=== PATIENT | male | born 1950 | race Caucasian/White ===

== ENCOUNTER 2017-02-02 20:17 | Inpatient (IN) | payer MEDICARE, OTHER ==
[~2017-02-02] VITALS: Ht 188 cm; Wt 126.6 kg
[2017-02-02 20:26] VITALS: BP 132/58
[2017-02-02] MEDS ORDERED: Vancomycin 1 GM in NS 275 ML IV ONE (20:30)
[2017-02-02] MEDS ORDERED: Meropenem 1 GM in NS 110 ML IVPB ONE (20:30)
[2017-02-02] MEDS ORDERED: NS IVLG ONE (20:30)
[2017-02-02 21:41] LABS: MEAN CORPUSCULAR HEMOGLOBIN 34.8 PG (27.0-31.0); MEAN CORPUSCULAR HGB CONC 35.5 G/DL (32.0-36.0); MEAN CORPUSCULAR VOLUME 98 FL (80-99); MEAN PLATELET VOLUME 7.1 FL (6.5-10.1); PLATELET COUNT 106 K/UL (150-450); RED BLOOD COUNT 4.05 M/UL (4.70-6.10); RED CELL DISTRIBUTION WIDTH 13.7 % (11.6-14.8); WHITE BLOOD COUNT 20.3 K/UL (4.8-10.8)
[2017-02-02 22:03] LABS: ALBUMIN/GLOBULIN RATIO 1.1 (1.0-2.7); CALCIUM 9.4 mg/dL (8.6-10.2); CREATININE 1.5 mg/dL (0.7-1.2); GLOMERULAR FILTRATION RATE 46.5 mL/min (>60); POTASSIUM 4.4 mEQ/L (3.4-4.9); TROPONIN I < 0.30 ng/mL (<=0.30)
[2017-02-02] MEDS ORDERED: Meropenem 1gm vial ONE (22:10)
[2017-02-02] MEDS ORDERED: Vancomycin 1gm inj IVPB ONE ×2 (22:11→23:25)
[2017-02-02 22:13] LABS: CKMB 5.2 ng/mL (< 6.7)
[2017-02-02] MEDS: Acetaminophen 500mg (ES) tab ORAL ONE ×3 (22:25→23:05)
[2017-02-02 22:34] LABS: BAND NEUTROPHILS % (MANUAL) 4 % (0-8); BASOPHILS % (MANUAL) 1 % (0-2); EOSINOPHILS % (MANUAL) 0 % (0-3); LYMPHOCYTES % (MANUAL) 7 % (20-45); NEUTROPHILS % (MANUAL) 83 % (45-75); PLATELET ESTIMATE DECREASED; PLATELET MORPHOLOGY NORMAL; TOTAL CELLS COUNTED 100
--- NOTE | 2017-02-02 22:42 | Emergency Room Report ---
History of Present Illness General Chief Complaint: General Complaint Source: Patient, Medical Record, EMS Present Illness HPI This patient presents from a skilled facility. He has a history of COPD, hypertension, GERD and schizophrenia. He presents with concerns over infection. He was tachypneic with an elevated temperature. EMS also reported that his oxygen saturation was low. He has no specific complaints at this time. Allergies: Coded Allergies: No Known Allergies (Unverified , 02/02/17) Patient History Past Medical History: see triage record, old chart reviewed, HTN, CAD, COPD, GERD, psych hx, renal disease Social History: Denies: smoking, alcohol use, drug use Reviewed Nursing Documentation: PMH: Agreed, PSxH: Agreed Nursing Documentation-PMH Hx Hypertension: Yes Hx COPD: Yes Review of Systems All Other Systems: negative except mentioned in HPI Physical Exam Vital Signs Date Time Temp Pulse Resp B/P (MAP) Pulse Ox O2 Delivery O2 Flow Rate FiO2 02/02/17 20:07 99.7 111 24 147/76 98 Room Air Sp02 EP Interpretation: reviewed, normal General Appearance: no apparent distress, alert, GCS 15, non-toxic Head: normocephalic, atraumatic Eyes: bilateral eye normal inspection, bilateral eye PERRL ENT: hearing grossly normal, normal pharynx, no angioedema, normal voice Neck: full range of motion, supple/symm/no masses Respiratory: chest non-tender, lungs clear, normal breath sounds, no respiratory distress, no retraction, no accessory muscle use, speaking full sentences Cardiovascular #1: no edema, tachycardia Gastrointestinal: normal bowel sounds, non tender, soft, non-distended, no guarding, no rebound Rectal: deferred Musculoskeletal: normal range of motion, non-tender Neurologic: alert, responsive, motor strength/tone normal, speech normal Psychiatric: mood/affect normal, no suicidal/homicidal ideation Skin: warm/dry, well hydrated, other - See RN skin exam Medical Decision Making Diagnostic Impression: Primary Impression: Sepsis Additional Impression: Pneumonia ER Course This patient has sepsis. He presented with tachycardia and a white blood cell count 20. The chest x-ray is limited but appears to have a left lower lobe opacity. He was given broad-spectrum antibiotics IV fluids. He'll be admitted for further evaluation and treatment. Blood pressure remained stable. The patient maintained his oxygen saturations in the high 90s. He is admitted to telemetry. Laboratory Tests Test 02/02/17 21:30 White Blood Count 20.3 K/UL (4.8-10.8) H Red Blood Count 4.05 M/UL (4.70-6.10) L Hemoglobin 14.1 G/DL (14.2-18.0) L Hematocrit 39.7 % (42.0-52.0) L Mean Corpuscular Volume 98 FL (80-99) Mean Corpuscular Hemoglobin 34.8 PG (27.0-31.0) H Mean Corpuscular Hemoglobin Concent 35.5 G/DL (32.0-36.0) Red Cell Distribution Width 13.7 % (11.6-14.8) Platelet Count 106 K/UL (150-450) L Mean Platelet Volume 7.1 FL (6.5-10.1) Neutrophils (%) (Auto) % (45.0-75.0) Lymphocytes (%) (Auto) % (20.0-45.0) Monocytes (%) (Auto) % (1.0-10.0) Eosinophils (%) (Auto) % (0.0-3.0) Basophils (%) (Auto) % (0.0-2.0) Differential Total Cells Counted 100 Neutrophils % (Manual) 83 % (45-75) H Lymphocytes % (Manual) 7 % (20-45) L Monocytes % (Manual) 5 % (1-10) Eosinophils % (Manual) 0 % (0-3) Basophils % (Manual) 1 % (0-2) Band Neutrophils 4 % (0-8) Platelet Estimate Decreased L Platelet Morphology Normal Red Blood Cell Morphology Normal Sodium Level 135 mEQ/L (135-145) Potassium Level 4.4 mEQ/L (3.4-4.9) Chloride Level 98 mEQ/L (98-107) Carbon Dioxide Level 23 mEQ/L (20-30) Anion Gap 14 (5-15) Blood Urea Nitrogen 29 mg/dL (7-23) H Creatinine 1.5 mg/dL (0.7-1.2) H Estimate Glomerular Filtration Rate 46.5 mL/min (>60) Glucose Level 125 mg/dL (74-106) H Lactic Acid Level 1.70 mmol/L (0.66-2.22) Calcium Level 9.4 mg/dL (8.6-10.2) Total Bilirubin 0.6 mg/dL (0.0-1.2) Aspartate Amino Transferase (AST) 39 U/L (5-40) Alanine Aminotransferase (ALT) 12 U/L (3-41) Alkaline Phosphatase 52 U/L (40-129) Total Creatine Kinase 755 U/L (38-174) H Creatine Kinase MB 5.2 ng/mL (< 6.7) Creatine Kinase MB Relative Index 0.6 Troponin I < 0.30 ng/mL (<=0.30) Total Protein 7.0 g/dL (6.6-8.7) Albumin 3.7 g/dL (3.5-5.2) Globulin 3.3 g/dL Albumin/Globulin Ratio 1.1 (1.0-2.7) EKG Diagnostic Results Rate: tachycardiac Rhythm: other ST Segments: no acute changes Other Impression S.tachycardia Rhythm Strip Diag. Results EP Interpretation: yes Rate: 100's Rhythm: other Other Impression S.tachycardia Chest X-Ray Diagnostic Results Chest X-Ray Diagnostic Results : Chest X-Ray Ordered: Yes # of Views/Limited/Complete: 1 View Indication: Shortness of Breath EP Interpretation: Yes Interpretation: other Impression: Other - LLL opacity Last Vital Signs Date Time Temp Pulse Resp B/P (MAP) Pulse Ox O2 Delivery O2 Flow Rate FiO2 02/02/17 20:26 99.7 102 24 132/58 98 Room Air Disposition: ADMITTED INPATIENT Condition: Serious Referrals: Connor Oliva MD (PCP) HIREN RINCON D.O. Feb 02, 2017 22:42
[2017-02-02 22:51] VITALS: BP 107/70
[2017-02-02] MEDS ORDERED: Acetaminophen 650 MG SUPP RECTAL ONE ×2 (23:18→23:30)
[2017-02-02 23:37] LABS: APPEARANCE,URINE CLEAR; KETONES,URINE 1+ (NEGATIVE); NITRITE,URINE NEGATIVE (NEGATIVE); PH,URINE 6 (4.5-8.0); PROTEIN,URINE 2+ (NEGATIVE); UROBILINOGEN,URINE 1 MG/DL (0.0-1.0)
[2017-02-02 23:43] LABS: LEUKOCYTE ESTERASE ,URINE NEGATIVE (NEGATIVE)
[2017-02-02 23:48] LABS: RBC,URINE 0-2 /HPF (0 - 0); WBC,URINE 0 /HPF (0 - 0)
[2017-02-02] MEDS ORDERED: CRANBERRY500 M4 PO (23:50)
[2017-02-02] MEDS ORDERED: ASPIR 8181 MG ORAL (23:50)
[2017-02-02] MEDS ORDERED: ZINC SULFATE220 M1 ORAL (23:50)
[2017-02-02] MEDS ORDERED: VITAMIN C500 M1 ORAL (23:50)
[2017-02-02] MEDS ORDERED: FERROUS SULFAT325 MG ORAL (23:50)
[2017-02-02] MEDS ORDERED: AMLODIPINE BESYL5 MG ORAL (23:50)
[2017-02-02] MEDS ORDERED: FLOMAX0.4 MG ORAL (23:50)
[2017-02-03] VITALS (7 sets, daily range): BP systolic 120–135; BP diastolic 50–73
[2017-02-03] MEDS ORDERED: Acetaminophen 650 MG SUPP RECTAL PRN ×2 (00:45→18:30)
[2017-02-03 05:20] LABS: MEAN CORPUSCULAR HEMOGLOBIN 34.5 PG (27.0-31.0); MEAN CORPUSCULAR HGB CONC 34.6 G/DL (32.0-36.0); MEAN CORPUSCULAR VOLUME 100 FL (80-99); MEAN PLATELET VOLUME 6.8 FL (6.5-10.1); PLATELET COUNT 105 K/UL (150-450); RED CELL DISTRIBUTION WIDTH 13.8 % (11.6-14.8)
[2017-02-03 05:42] LABS: ALANINE AMINOTRANSFERASE 13 U/L (3-41); ALBUMIN/GLOBULIN RATIO 0.7 (1.0-2.7); ANION GAP 12 (5-15); ASPARTATE AMINO TRANSFERASE 57 U/L (5-40); CALCIUM 9.1 mg/dL (8.6-10.2); CARBON DIOXIDE 22 mEQ/L (20-30); CHLORIDE 105 mEQ/L (98-107); CREATININE 1.2 mg/dL (0.7-1.2); GLOMERULAR FILTRATION RATE > 60 mL/min (>60); HEMOLYSIS 5; POTASSIUM 4.1 mEQ/L (3.4-4.9); SODIUM 139 mEQ/L (135-145); TOTAL PROTEIN 6.8 g/dL (6.6-8.7)
[2017-02-03] MEDS ORDERED: Promethazine/Codeine 5ml UD ORAL PRN ×2 (06:45→18:45)
[2017-02-03] MEDS ORDERED: Zinc Sulfate 220mg cap ORAL SCH (09:00)
[2017-02-03] MEDS ORDERED: Ascorbic Acid 500mg tab ORAL SCH (09:00)
[2017-02-03] MEDS ORDERED: Tamsulosin 0.4mg cap ORAL SCH (09:00)
[2017-02-03] MEDS ORDERED: Aspirin Baby 81mg ORAL SCH (09:00)
[2017-02-03 09:06] LABS: ANISOCYTOSIS 1+; BAND NEUTROPHILS % (MANUAL) 4 % (0-8); BASOPHILS % (MANUAL) 0 % (0-2); EOSINOPHILS % (MANUAL) 0 % (0-3); LYMPHOCYTES % (MANUAL) 6 % (20-45); MACROCYTES 1+; METAMYELOCYTES % 7 % (0-0); MYELOCYTES % 1 % (0-0); NEUTROPHILS % (MANUAL) 69 % (45-75); PLATELET ESTIMATE DECREASED; PLATELET MORPHOLOGY NORMAL; TOTAL CELLS COUNTED 100
[2017-02-03 09:07] LABS: BURR CELLS 1+; OVALOCYTES 1+; TEAR DROP CELLS 1+
--- NOTE | 2017-02-03 11:14 | Consultation ---
History of Present Illness General Date patient seen: Feb 03, 2017 Chief Complaint: General Complaint Present Illness HPI 66 year old male with hx of psychosis, CAD, COPD presented from a skilled facility with CC of tachypneic with an elevated temperature. EMS also reported that his oxygen saturation was low. He has no specific complaints at this time. He was diagnosed to have RLL pneumonia and admitted to [facility] for further evaluation. Allergies: Coded Allergies: No Known Allergies (Unverified , 02/02/17) Medication History Scheduled Amlodipine Besylate* (Amlodipine Besylate*), 5 MG ORAL DAILY, (Reported) Ascorbic Acid* (Vitamin C*), 500 MG ORAL DAILY, (Reported) Aspirin* (Aspir 81*), 81 MG ORAL DAILY, (Reported) Ferrous Sulfate* (Ferrous Sulfate*), 325 MG ORAL DAILY, (Reported) Tamsulosin HCl (Flomax), 0.4 MG ORAL DAILY, (Reported) Zinc Sulfate (Zinc Sulfate*), 220 MG ORAL DAILY, (Reported) Miscellaneous Medications Cranberry Extract (Cranberry), 450 MG PO, (Reported) Patient History Healthcare decision maker Resuscitation status Full Code Advanced Directive on File No Past Medical/Surgical History Past Medical/Surgical History: (1) CAD (coronary artery disease) (2) COPD (chronic obstructive pulmonary disease) (3) Psychosis Review of Systems Constitutional: Reports: no symptoms Eye: Reports: no symptoms ENT: Reports: no symptoms Cardiovascular: Reports: no symptoms Physical Exam General Appearance: WD/WN Lines, tubes and drains: peripheral, central line HEENT: normocephalic, atraumatic Neck: non-tender, normal alignment Respiratory/Chest: lungs clear, normal breath sounds Breasts: no masses Cardiovascular/Chest: normal rate, regularly irregular Abdomen: normal bowel sounds, soft Genitourinary/Rectal: normal genital exam Last 24 Hour Vital Signs Date Time Temp Pulse Resp B/P (MAP) Pulse Ox O2 Delivery O2 Flow Rate FiO2 02/03/17 09:15 95 120/73 02/03/17 08:00 95 02/03/17 08:00 99.3 92 21 120/73 93 Room Air 02/03/17 04:00 109 02/03/17 04:00 96.9 105 20 133/71 95 Nasal Cannula 3.0 02/03/17 01:15 97.2 115 24 135/72 97 Nasal Cannula 3.0 02/03/17 00:27 99.4 105 25 127/70 95 Nasal Cannula 2.0 02/03/17 00:13 99.4 02/03/17 00:10 99.4 105 25 127/70 95 Nasal Cannula 2.0 02/02/17 22:51 101.3 91 24 107/70 94 Nasal Cannula 2.0 02/02/17 20:26 99.7 102 24 132/58 98 Room Air 02/02/17 20:07 99.7 111 24 147/76 98 Room Air Intake and Output 02/03/17 02/04/17 19:00 07:00 Intake Total 240 ml Balance 240 ml Intake Oral 240 ml Laboratory Tests Test 02/02/17 21:30 02/02/17 23:22 02/03/17 03:50 White Blood Count 20.3 K/UL (4.8-10.8) H 22.0 K/UL (4.8-10.8) H Red Blood Count 4.05 M/UL (4.70-6.10) L 3.90 M/UL (4.70-6.10) L Hemoglobin 14.1 G/DL (14.2-18.0) L 13.4 G/DL (14.2-18.0) L Hematocrit 39.7 % (42.0-52.0) L 38.8 % (42.0-52.0) L Mean Corpuscular Volume 98 FL (80-99) 100 FL (80-99) H Mean Corpuscular Hemoglobin 34.8 PG (27.0-31.0) H 34.5 PG (27.0-31.0) H Mean Corpuscular Hemoglobin Concent 35.5 G/DL (32.0-36.0) 34.6 G/DL (32.0-36.0) Red Cell Distribution Width 13.7 % (11.6-14.8) 13.8 % (11.6-14.8) Platelet Count 106 K/UL (150-450) L 105 K/UL (150-450) L Mean Platelet Volume 7.1 FL (6.5-10.1) 6.8 FL (6.5-10.1) Neutrophils (%) (Auto) % (45.0-75.0) % (45.0-75.0) Lymphocytes (%) (Auto) % (20.0-45.0) % (20.0-45.0) Monocytes (%) (Auto) % (1.0-10.0) % (1.0-10.0) Eosinophils (%) (Auto) % (0.0-3.0) % (0.0-3.0) Basophils (%) (Auto) % (0.0-2.0) % (0.0-2.0) Differential Total Cells Counted 100 100 Neutrophils % (Manual) 83 % (45-75) H 69 % (45-75) Lymphocytes % (Manual) 7 % (20-45) L 6 % (20-45) L Monocytes % (Manual) 5 % (1-10) 13 % (1-10) H Eosinophils % (Manual) 0 % (0-3) 0 % (0-3) Basophils % (Manual) 1 % (0-2) 0 % (0-2) Band Neutrophils 4 % (0-8) 4 % (0-8) Platelet Estimate Decreased L Decreased L Platelet Morphology Normal Normal Red Blood Cell Morphology Normal Sodium Level 135 mEQ/L (135-145) 139 mEQ/L (135-145) Potassium Level 4.4 mEQ/L (3.4-4.9) 4.1 mEQ/L (3.4-4.9) Chloride Level 98 mEQ/L (98-107) 105 mEQ/L (98-107) Carbon Dioxide Level 23 mEQ/L (20-30) 22 mEQ/L (20-30) Anion Gap 14 (5-15) 12 (5-15) Blood Urea Nitrogen 29 mg/dL (7-23) H 25 mg/dL (7-23) H Creatinine 1.5 mg/dL (0.7-1.2) H 1.2 mg/dL (0.7-1.2) Estimat Glomerular Filtration Rate 46.5 mL/min (>60) > 60 mL/min (>60) Glucose Level 125 mg/dL (74-106) H 91 mg/dL (74-106) Lactic Acid Level 1.70 mmol/L (0.66-2.22) Calcium Level 9.4 mg/dL (8.6-10.2) 9.1 mg/dL (8.6-10.2) Total Bilirubin 0.6 mg/dL (0.0-1.2) 0.6 mg/dL (0.0-1.2) Aspartate Amino Transf (AST/SGOT) 39 U/L (5-40) 57 U/L (5-40) H Alanine Aminotransferase (ALT/SGPT) 12 U/L (3-41) 13 U/L (3-41) Alkaline Phosphatase 52 U/L (40-129) 60 U/L (40-129) Total Creatine Kinase 755 U/L (38-174) H Creatine Kinase MB 5.2 ng/mL (< 6.7) Creatine Kinase MB Relative Index 0.6 Troponin I < 0.30 ng/mL (<=0.30) Total Protein 7.0 g/dL (6.6-8.7) 6.8 g/dL (6.6-8.7) Albumin 3.7 g/dL (3.5-5.2) 2.9 g/dL (3.5-5.2) L Globulin 3.3 g/dL 3.9 g/dL Albumin/Globulin Ratio 1.1 (1.0-2.7) 0.7 (1.0-2.7) L Urine Color Yellow Urine Appearance Clear Urine pH 6 (4.5-8.0) Urine Specific [place] 1.010 (1.005-1.035) Urine Protein 2+ (NEGATIVE) H Urine Glucose (UA) Negative (NEGATIVE) Urine Ketones 1+ (NEGATIVE) H Urine Occult Blood Negative (NEGATIVE) Urine Nitrite Negative (NEGATIVE) Urine Bilirubin Negative (NEGATIVE) Urine Urobilinogen 1 MG/DL (0.0-1.0) H Urine Leukocyte Esterase Negative (NEGATIVE) Urine RBC 0-2 /HPF (0 - 0) H Urine WBC 0 /HPF (0 - 0) Urine Squamous Epithelial Cells None /LPF (NONE/OCC) Urine Bacteria None /HPF (NONE) Metamyelocytes % 7 % (0-0) H Myelocytes % 1 % (0-0) H Anisocytosis 1+ Macrocytosis 1+ Tear Drop Cells 1+ Ovalocytes 1+ Jackson Cells 1+ Height (Feet): 6 Height (Inches): 2.00 Weight (Pounds): 279 Medications Current Medications Medications (Trade) Dose Ordered Sig/Ruma Route PRN Reason Start Time Stop Time Status Last Admin Dose Admin Acetaminophen (Tylenol) 650 mg Q4H PRN RECTAL Mild Pain (Pain Scale 1-3) 02/03/17 00:45 03/05/17 00:44 Amlodipine Besylate (Norvasc) 5 mg DAILY ORAL 02/03/17 09:00 03/05/17 08:59 02/03/17 09:15 Ascorbic Acid (Vitamin C) 500 mg DAILY ORAL 02/03/17 09:00 03/05/17 08:59 02/03/17 09:15 Aspirin (ASA) 81 mg DAILY ORAL 02/03/17 09:00 03/05/17 08:59 02/03/17 09:15 Ferrous Sulfate (Feosol) 325 mg DAILY ORAL 02/03/17 09:00 03/05/17 08:59 02/03/17 09:15 Promethazine HCl/ Codeine (Phenergan with Codeine) 5 ml Q4H PRN ORAL For Cough 02/03/17 06:45 03/05/17 06:44 Tamsulosin HCl (Flomax) 0.4 mg DAILY ORAL 02/03/17 09:00 03/05/17 08:59 02/03/17 09:15 Zinc Sulfate (Zinc Sulfate) 220 mg DAILY ORAL 02/03/17 09:00 03/05/17 08:59 02/03/17 09:15 Assessment/Plan Problem List: (1) Pneumonia ICD Codes: J18.9 - Pneumonia, unspecified organism SNOMED: 570090017 (2) Sepsis ICD Codes: A41.9 - Sepsis, unspecified organism SNOMED: 42103808 (3) COPD (chronic obstructive pulmonary disease) ICD Codes: J44.9 - Chronic obstructive pulmonary disease, unspecified SNOMED: 13082797 (4) CAD (coronary artery disease) ICD Codes: I25.10 - Atherosclerotic heart disease of [place] coronary artery without angina pectoris SNOMED: 25008986 (5) Psychosis ICD Codes: F29 - Unspecified psychosis not due to a substance or known physiological condition SNOMED: 93753962 Assessment/Plan respiratory treatment IV abx chest pt check sputum cxr in a few days med/surg dvt prophylaxis. CELINA COLLIER Feb 03, 2017 11:14
[2017-02-03 11:30] LABS: OTHERS PATHOLOGIST COMMENT
--- NOTE | 2017-02-03 11:49 | Diagnostic Imaging Report ---
Indication: Dyspnea Comparison: None A single view chest radiograph was obtained. Findings: Infiltrate may be present at the left lung base. Heart is enlarged. Lung volumes are low bilaterally. Bones are unremarkable. Impression: Suspect pneumonia at the left lung base. Atelectasis is also a possibility. Please correlate clinically.
[2017-02-03] MEDS ORDERED: Piperacillin/Tazobactam 3.375 GM in D5W 110 ML IVPB SCH (12:00)
--- NOTE | 2017-02-03 13:52 | Infectious Diseases Prog Note ---
Assessment/Plan Problems: (1) HCAP (healthcare-associated pneumonia) Assessment & Plan: will start vancomycin and continue zosyn empirically, send sputum culture (2) Sepsis Assessment & Plan: will send blood culture and continue wide spectrum antibiotics pending culture (3) COPD (chronic obstructive pulmonary disease) Assessment & Plan: continue inhalers, and oxygen (4) CAD (coronary artery disease) Assessment & Plan: continue cardiac meds , monitor in tele Subjective Allergies: Coded Allergies: No Known Allergies (Unverified , 02/02/17) Objective Vital Signs Last 24 Hour Vital Signs Date Time Temp Pulse Resp B/P (MAP) Pulse Ox O2 Delivery O2 Flow Rate FiO2 02/03/17 11:45 98.2 86 21 122/72 93 Nasal Cannula 2.0 02/03/17 11:30 86 20 Room Air 21 02/03/17 09:15 95 120/73 02/03/17 08:00 95 02/03/17 08:00 99.3 92 21 120/73 93 Room Air 02/03/17 04:00 109 02/03/17 04:00 96.9 105 20 133/71 95 Nasal Cannula 3.0 02/03/17 01:15 97.2 115 24 135/72 97 Nasal Cannula 3.0 02/03/17 00:27 99.4 105 25 127/70 95 Nasal Cannula 2.0 02/03/17 00:13 99.4 02/03/17 00:10 99.4 105 25 127/70 95 Nasal Cannula 2.0 02/02/17 22:51 101.3 91 24 107/70 94 Nasal Cannula 2.0 02/02/17 20:26 99.7 102 24 132/58 98 Room Air 02/02/17 20:07 99.7 111 24 147/76 98 Room Air Height (Feet): 6 Height (Inches): 2.00 Weight (Pounds): 279 Laboratory Tests Test 02/02/17 21:30 02/02/17 23:22 02/03/17 03:50 White Blood Count 20.3 K/UL (4.8-10.8) H 22.0 K/UL (4.8-10.8) H Red Blood Count 4.05 M/UL (4.70-6.10) L 3.90 M/UL (4.70-6.10) L Hemoglobin 14.1 G/DL (14.2-18.0) L 13.4 G/DL (14.2-18.0) L Hematocrit 39.7 % (42.0-52.0) L 38.8 % (42.0-52.0) L Mean Corpuscular Volume 98 FL (80-99) 100 FL (80-99) H Mean Corpuscular Hemoglobin 34.8 PG (27.0-31.0) H 34.5 PG (27.0-31.0) H Mean Corpuscular Hemoglobin Concent 35.5 G/DL (32.0-36.0) 34.6 G/DL (32.0-36.0) Red Cell Distribution Width 13.7 % (11.6-14.8) 13.8 % (11.6-14.8) Platelet Count 106 K/UL (150-450) L 105 K/UL (150-450) L Mean Platelet Volume 7.1 FL (6.5-10.1) 6.8 FL (6.5-10.1) Neutrophils (%) (Auto) % (45.0-75.0) % (45.0-75.0) Lymphocytes (%) (Auto) % (20.0-45.0) % (20.0-45.0) Monocytes (%) (Auto) % (1.0-10.0) % (1.0-10.0) Eosinophils (%) (Auto) % (0.0-3.0) % (0.0-3.0) Basophils (%) (Auto) % (0.0-2.0) % (0.0-2.0) Differential Total Cells Counted 100 100 Neutrophils % (Manual) 83 % (45-75) H 69 % (45-75) Lymphocytes % (Manual) 7 % (20-45) L 6 % (20-45) L Monocytes % (Manual) 5 % (1-10) 13 % (1-10) H Eosinophils % (Manual) 0 % (0-3) 0 % (0-3) Basophils % (Manual) 1 % (0-2) 0 % (0-2) Band Neutrophils 4 % (0-8) 4 % (0-8) Platelet Estimate Decreased L Decreased L Platelet Morphology Normal Normal Red Blood Cell Morphology Normal Sodium Level 135 mEQ/L (135-145) 139 mEQ/L (135-145) Potassium Level 4.4 mEQ/L (3.4-4.9) 4.1 mEQ/L (3.4-4.9) Chloride Level 98 mEQ/L (98-107) 105 mEQ/L (98-107) Carbon Dioxide Level 23 mEQ/L (20-30) 22 mEQ/L (20-30) Anion Gap 14 (5-15) 12 (5-15) Blood Urea Nitrogen 29 mg/dL (7-23) H 25 mg/dL (7-23) H Creatinine 1.5 mg/dL (0.7-1.2) H 1.2 mg/dL (0.7-1.2) Estimat Glomerular Filtration Rate 46.5 mL/min (>60) > 60 mL/min (>60) Glucose Level 125 mg/dL (74-106) H 91 mg/dL (74-106) Lactic Acid Level 1.70 mmol/L (0.66-2.22) Calcium Level 9.4 mg/dL (8.6-10.2) 9.1 mg/dL (8.6-10.2) Total Bilirubin 0.6 mg/dL (0.0-1.2) 0.6 mg/dL (0.0-1.2) Aspartate Amino Transf (AST/SGOT) 39 U/L (5-40) 57 U/L (5-40) H Alanine Aminotransferase (ALT/SGPT) 12 U/L (3-41) 13 U/L (3-41) Alkaline Phosphatase 52 U/L (40-129) 60 U/L (40-129) Total Creatine Kinase 755 U/L (38-174) H Creatine Kinase MB 5.2 ng/mL (< 6.7) Creatine Kinase MB Relative Index 0.6 Troponin I < 0.30 ng/mL (<=0.30) Total Protein 7.0 g/dL (6.6-8.7) 6.8 g/dL (6.6-8.7) Albumin 3.7 g/dL (3.5-5.2) 2.9 g/dL (3.5-5.2) L Globulin 3.3 g/dL 3.9 g/dL Albumin/Globulin Ratio 1.1 (1.0-2.7) 0.7 (1.0-2.7) L Urine Color Yellow Urine Appearance Clear Urine pH 6 (4.5-8.0) Urine Specific [place] 1.010 (1.005-1.035) Urine Protein 2+ (NEGATIVE) H Urine Glucose (UA) Negative (NEGATIVE) Urine Ketones 1+ (NEGATIVE) H Urine Occult Blood Negative (NEGATIVE) Urine Nitrite Negative (NEGATIVE) Urine Bilirubin Negative (NEGATIVE) Urine Urobilinogen 1 MG/DL (0.0-1.0) H Urine Leukocyte Esterase Negative (NEGATIVE) Urine RBC 0-2 /HPF (0 - 0) H Urine WBC 0 /HPF (0 - 0) Urine Squamous Epithelial Cells None /LPF (NONE/OCC) Urine Bacteria None /HPF (NONE) Metamyelocytes % 7 % (0-0) H Myelocytes % 1 % (0-0) H Other Cell Type Pathologist comment Anisocytosis 1+ Macrocytosis 1+ Tear Drop Cells 1+ Ovalocytes 1+ Sarah Cells 1+ Current Medications Medications (Trade) Dose Ordered Sig/Ruma Route PRN Reason Start Time Stop Time Status Last Admin Dose Admin Acetaminophen (Tylenol) 650 mg Q4H PRN RECTAL Mild Pain (Pain Scale 1-3) 02/03/17 00:45 03/05/17 00:44 Amlodipine Besylate (Norvasc) 5 mg DAILY ORAL 02/03/17 09:00 03/05/17 08:59 02/03/17 09:15 Ascorbic Acid (Vitamin C) 500 mg DAILY ORAL 02/03/17 09:00 03/05/17 08:59 02/03/17 09:15 Aspirin (ASA) 81 mg DAILY ORAL 02/03/17 09:00 03/05/17 08:59 02/03/17 09:15 Ferrous Sulfate (Feosol) 325 mg DAILY ORAL 02/03/17 09:00 03/05/17 08:59 02/03/17 09:15 Piperacillin Sod/ Tazobactam Sod 3.375 gm/Dextrose 110 ml @ 27.5 mls/hr EVERY 8 HOURS IVPB 02/03/17 12:00 02/08/17 11:59 Promethazine HCl/ Codeine (Phenergan with Codeine) 5 ml Q4H PRN ORAL For Cough 02/03/17 06:45 03/05/17 06:44 Tamsulosin HCl (Flomax) 0.4 mg DAILY ORAL 02/03/17 09:00 03/05/17 08:59 02/03/17 09:15 Zinc Sulfate (Zinc Sulfate) 220 mg DAILY ORAL 02/03/17 09:00 03/05/17 08:59 02/03/17 09:15 Perez Anderson M.D. Feb 03, 2017 13:52
[2017-02-03] MEDS ORDERED: Vancomycin 1500mg IVPB SCH (14:30)
--- NOTE | 2017-02-03 17:55 | Cardiology Report ---
APPROVED REPORT EKG Measurement Heart [id number] HI [id number] Sinus tachycardia Otherwise normal ECG
[2017-02-03] MEDS ORDERED: Tubing IV Secondary IV ONE (19:43)
[2017-02-03] MEDS ORDERED: NS 275ml ONE (19:43)
[2017-02-03] MEDS: Piperacillin/Tazobactam 3.375 GM in D5W 110 ML IVPB SCH (22:20)
[2017-02-04] VITALS: BP 123/56
--- NOTE | 2017-02-04 00:02 | Consultation ---
DATE OF CONSULTATION: 02/03/2017 INFECTIOUS DISEASES CONSULTATION CONSULTING PHYSICIAN: Perez Anderson M.D. REQUESTING PHYSICIAN: Connor Oliva M.D. Reason For Consultation: Sepsis, pneumonia, and recommendation for antibiotics treatment History Of Present Illness: The patient is a 66-year-old male with past medical history of hypertension, COPD, coronary artery disease, psych disorder, and renal disease, was sent to [facility] emergency room from [facility] for concern of infection. The patient was tachypneic with fever. His oxygen saturation was found to be low via paramedics, so he was brought into the hospital for evaluation. The patient was found to have temperature of 99.7 in the emergency room. White count was around 20,000 concerning for sepsis, so he was started on IV antibiotics and I was consulted by the primary provider for antibiotics treatment and further management since his chest x-ray showed left lower lobe opacity concerning for pneumonia. Past Medical History: Significant for hypertension, coronary artery disease, COPD, GERD, psych disorder, and renal disease. Medications: The patient was started on vancomycin and Zosyn by the admitting physician. For the rest of his medications, please refer to MAR. ALLERGIES: No known drug allergy. Social History: He lives at the [facility]. No recent drugs, tobacco, or alcohol. FAMILY HISTORY: Unable to obtain at this point. PHYSICAL EXAMINATION: Vital signs: Temperature 99, pulse 80, respirations 20, blood pressure 130/67, and saturation 93% on nasal cannula 2 liters. General: A middle-aged male, obese, lying in bed, awake, alert, not in distress. HEENT: Normocephalic and atraumatic. Pupils are reactive to light. Dry oral mucosa. NECK: Supple. No lymphadenopathy. CARDIOVASCULAR: Tachycardic. S1 and S2 are normal. No murmur. Lungs: He had crackles and diminished breathing sounds at the bases mainly the left lower lobe. Normal breathing efforts. Abdomen: Soft, nontender, and nondistended. Obese. No organomegaly. EXTREMITIES: Trace edema. No cyanosis. SKIN: No rash. Laboratory data: Laboratory showed white count of 22,000 hemoglobin of 15.4, and platelet count of 105, BUN of 25, and creatinine of 1.2. Urinalysis showed negative leukocyte esterase, WBCs 0, and no bacteria. IMAGING: Chest x-ray showed left lower lobe opacity. ASSESSMENT AND RECOMMENDATION: 1. Healthcare-acquired pneumonia with left lower lobe infiltrate. We will start vancomycin and continue Zosyn empiric treatment. Send sputum culture and blood culture to rule out sepsis. Monitor chest x-ray. 2. Sepsis. We will send blood culture. Continue Zosyn and vancomycin. Pending culture results. 3. Chronic obstructive pulmonary disease, possible exacerbation. Continue inhalers, antibiotics, and oxygen. 4. Coronary artery disease. Continue cardiac medications. Monitor in telemetry. Perez Anderson M.D. DR: Lopez JOB#: [id number] CC:
[2017-02-04] MEDS ORDERED: Vancomycin 1.5gm/D5W 250ml 250 ML IVPB SCH (03:00)
[2017-02-04 04:00] VITALS: BP 112/69
[2017-02-04] MEDS: Piperacillin/Tazobactam 3.375 GM in D5W 110 ML IVPB SCH ×3 (06:10→21:37)
[2017-02-04 08:57] VITALS: BP 127/57
[2017-02-04] MEDS ORDERED: Ascorbic Acid 500mg tab ORAL SCH (09:00)
[2017-02-04] MEDS ORDERED: Aspirin Baby 81mg ORAL SCH (09:00)
[2017-02-04] MEDS ORDERED: Zinc Sulfate 220mg cap ORAL SCH (09:00)
[2017-02-04] MEDS ORDERED: Tamsulosin 0.4mg cap ORAL SCH (09:00)
[2017-02-04 12:11] VITALS: BP 114/58
--- NOTE | 2017-02-04 12:40 | History and Physical Report ---
DATE OF ADMISSION: 02/02/2017 REASON FOR ADMISSION: Sepsis and pneumonia. History Of Present Illness: The patient is a poor historian. The patient had fever and diaphoresis at the skilled nursing and was transferred and admitted and was found to have sepsis and pneumonia. The patient is a poor historian and cannot rely upon his history. The patient is a psychiatric patient. The patient does have a history of schizophrenia, iron-deficiency anemia, BPH, OBS, history of CAD, and history of COPD. PAST SURGICAL HISTORY: None. Medications: , vitamin C, aspirin, cranberry juice, ferrous sulfate, and . ALLERGIES: No known allergies. FAMILY HISTORY: Noncontributory. Social History: He has history of smoking. No history of drug or alcohol use. He lives in a skilled nursing. Review Of Systems: HEENT: Denies headaches. Respiratory: Reports shortness of breath. Denies cough. Cardiovascular: Denies chest pain. Gastrointestinal: Denies nausea, vomiting, or diarrhea. Extremities: Denies pain. Central Nervous System: Denies change in vision or speech pattern, however, he is a poor historian. PHYSICAL EXAMINATION: Vital Signs: Temperature is 98.2 degrees, pulse 86, and blood pressure is 122/70. HEENT: PERRLA. NECK: Supple. CHEST: Clear to auscultation. CARDIOVASCULAR: Regular rate and rhythm. No murmur or extra sounds. Gastrointestinal: Soft, nontender, and nondistended. No organomegaly. EXTREMITIES: No edema. NEUROLOGIC: Reflexes are equal on both sides. Laboratory Data: Laboratory ruggiero, WBC of 20.3, hemoglobin 14.1, and platelets of 106,000. Sodium 135, potassium 4.4, BUN of 29, creatinine 1.5, and glucose of 125. ASSESSMENT: 1. Sepsis. 2. Pneumonia on the x-ray. 3. Leukocytosis, most likely due to sepsis. Plan: I have asked Dr. Anderson and Dr. Roman to see the patient for the above-mentioned diagnoses and treatment of sepsis and pneumonia. I have asked Dr. Montesinos and Dr. Roman to see the patient for dehydration, pneumonia, and sepsis. Connor Oliva M.D. DR: [id number] JOB#: [id number] CC:
--- NOTE | 2017-02-04 12:40 | Consultation ---
DATE OF CONSULTATION: 02/03/2017 HEMATOLOGY/ONCOLOGY CONSULTATION REQUESTING PHYSICIAN: Connor Oliva M.D. Reason For Consultation: Evaluation of thrombocytopenia and leukocytosis. IDENTIFICATION DATA: Dear Dr. Connor Oliva, The patient is a pleasant 66-year-old male with past medical history significant of psychosis . At this time, presents from a retirement facility with complaints of tachypnea as well as being febrile. Initial oxygen saturation was low. Diagnosis of right lower lobe pneumonia. Hematology service was consulted given leukocytosis as well as thrombocytopenia for evaluation and workup. PAST MEDICAL HISTORY: CAD, COPD, and psychosis. Medications: Amlodipine, ascorbic acid, aspirin, ferrous sulfate, and . ALLERGIES: No known drug allergies. Review Of Systems: Constitutional: No fever, chills, or night sweats. Skin: No rashes, lumps, or itching. HEENT: No headache, hearing or vision changes. Breasts: No lumps, pain, or discharge. Pulmonary: No cough, sputum, or shortness of breath. Gastrointestinal: No nausea, vomiting, or diarrhea. Genitourinary: No dysuria, frequency, or urgency. Musculoskeletal: No joint swelling, muscle pain, or trauma. PHYSICAL EXAMINATION: Vital Signs: Temperature 98 degrees Fahrenheit, pulse of 83, respiratory rate 12, blood pressure 120/73, and pulse oximetry 93% on room air. GENERAL: The patient is in no acute distress. PULMONARY: Decreased breath sounds. CARDIOVASCULAR: Regular rate. No S3 or S4. ABDOMEN: Soft, nontender, and nondistended. EXTREMITIES: There is 1+ edema. Laboratory Data: WBC 22,000, hemoglobin 13.4, hematocrit 39, platelet count of ,000, neutrophils 69%, lymphocytes 6%, and monocytes 30%. IMAGING: Chest x-ray shows pneumonia in the left lung base. ASSESSMENT AND PLAN: 1. Thrombocytopenia, likely secondary to underlying infection and sepsis. Continue to closely monitor. 2. Macrocytosis, likely related to medication versus other causes. Evaluate further with B12 and folate levels. 3. Leukocytosis, likely secondary to reactive process infection. 4. Coronary artery disease. Continue to closely monitor. 5. Chronic obstructive pulmonary disease, presented from retirement facility. 6. Elevated temperature. 7. Sepsis. I appreciate the consultation. Tr Bhardwaj M.D. DR: JOSI JOB#: [id number] CC:
--- NOTE | 2017-02-04 13:15 | Pulmonology Progress Note ---
Assessment/Plan Problems: (1) Pneumonia (2) Sepsis (3) COPD (chronic obstructive pulmonary disease) (4) CAD (coronary artery disease) (5) Psychosis Assessment/Plan wbc still high check cultures adjust abx hematology consult appreciated. dvt prophylaxis med/surg psych consult. Subjective ROS Limited/Unobtainable: No Constitutional: Reports: no symptoms HEENT: Repors: no symptoms Respiratory: Reports: no symptoms Cardiovascular: Reports: no symptoms Allergies: Coded Allergies: No Known Allergies (Unverified , 02/02/17) Objective Last 24 Hour Vital Signs Date Time Temp Pulse Resp B/P (MAP) Pulse Ox O2 Delivery O2 Flow Rate FiO2 02/04/17 12:11 97.2 71 20 114/58 95 Nasal Cannula 2.0 02/04/17 08:57 97.5 87 20 127/57 95 Nasal Cannula 2.0 02/04/17 08:34 69 127/69 02/04/17 08:00 72 02/04/17 04:00 97.7 88 21 112/69 95 Room Air 02/04/17 04:00 74 02/04/17 00:00 96 02/04/17 00:00 97.9 84 20 123/56 91 Nasal Cannula 2.0 21 02/03/17 20:00 107 02/03/17 20:00 99.0 101 20 129/50 91 Nasal Cannula 2.0 21 02/03/17 16:00 81 02/03/17 15:33 99.0 80 20 130/67 93 Nasal Cannula 2.0 Intake and Output 02/04/17 02/05/17 19:00 07:00 Intake Total 120 ml Balance 120 ml Intake Oral 120 ml General Appearance: WD/WN HEENT: normocephalic, atraumatic Respiratory/Chest: chest wall non-tender, lungs clear Cardiovascular: normal peripheral pulses, normal rate Abdomen: normal bowel sounds, soft, non tender Microbiology Date/Time Source Procedure Growth Status 02/02/17 21:30 Blood Blood Culture - Preliminary NO GROWTH AFTER 24 HOURS Resulted 02/02/17 21:15 Blood Blood Culture - Preliminary NO GROWTH AFTER 24 HOURS Resulted 02/03/17 11:30 Sputum Gram Stain - Final Resulted 02/03/17 11:30 Sputum Sputum Culture - Preliminary NO GROWTH AFTER 24 HOURS Resulted 02/02/17 23:51 Rectum VRE Culture - Final Complete Laboratory Tests 02/03/17 21:15: Hepatitis A IgM Antibody [Pending], Hepatitis B Surface Antigen [Pending], Hepatitis B Core IgM Antibody [Pending], Hepatitis C Antibody [Pending], HIV (1& 2) Antibody Rapid Negative Current Medications Medications (Trade) Dose Ordered Sig/Ruma Route PRN Reason Start Time Stop Time Status Last Admin Dose Admin Acetaminophen (Tylenol) 650 mg Q4H PRN RECTAL Mild Pain (Pain Scale 1-3) 02/03/17 18:30 03/05/17 18:29 Amlodipine Besylate (Norvasc) 5 mg DAILY ORAL 02/04/17 09:00 03/05/17 08:59 02/04/17 08:34 Ascorbic Acid (Vitamin C) 500 mg DAILY ORAL 02/04/17 09:00 03/05/17 08:59 02/04/17 08:35 Aspirin (ASA) 81 mg DAILY ORAL 02/04/17 09:00 03/05/17 08:59 02/04/17 08:34 Ferrous Sulfate (Feosol) 325 mg DAILY ORAL 02/04/17 09:00 03/05/17 08:59 02/04/17 08:34 Piperacillin Sod/ Tazobactam Sod 3.375 gm/Dextrose 110 ml @ 27.5 mls/hr EVERY 8 HOURS IVPB 02/03/17 22:00 02/08/17 21:59 02/04/17 13:01 Promethazine HCl/ Codeine (Phenergan with Codeine) 5 ml Q4H PRN ORAL For Cough 02/03/17 18:45 03/05/17 06:44 Tamsulosin HCl (Flomax) 0.4 mg DAILY ORAL 02/04/17 09:00 03/05/17 08:59 02/04/17 08:34 Vancomycin HCl (Vanco rx to dose) 1 ea DAILYPRN PRN MISC Per rx protocol 02/04/17 09:00 03/06/17 08:59 Vancomycin HCl/ Dextrose 250 ml @ 125 mls/hr 0300,1500 IVPB 02/04/17 03:00 02/08/17 14:29 02/04/17 02:44 Zinc Sulfate (Zinc Sulfate) 220 mg DAILY ORAL 02/04/17 09:00 03/05/17 08:59 02/04/17 08:35 CELINA COLLIER 13, 2017 13:15
--- NOTE | 2017-02-04 15:30 | General Progress Note ---
Assessment/Plan Assessment/Plan ASSESSMENT AND PLAN: 1. Thrombocytopenia, likely secondary to underlying infection and sepsis. Continue to closely monitor. --> hiv and hep panel negative ---> if the plt count less than 10k, transfuse immediately. If less than 20k and febrile, transfuse. If less than 50k and bleeding, transfuse. 2. Macrocytosis, likely related to medication versus other causes. Evaluate further with B12 and folate levels. 3. Leukocytosis, likely secondary to reactive process infection ---> on iv abx. 4. Coronary artery disease. Continue to closely monitor. 5. Chronic obstructive pulmonary disease, presented from [facility] facility. 6. Elevated temperature. 7. Sepsis Subjective Constitutional: Reports: no symptoms HEENT: Reports: no symptoms Cardiovascular: Reports: no symptoms Respiratory: Reports: no symptoms Gastrointestinal/Abdominal: Reports: no symptoms Genitourinary: Reports: no symptoms Neurologic/Psychiatric: Reports: no symptoms Endocrine: Reports: no symptoms Hematologic/Lymphatic: Reports: anemia Allergies: Coded Allergies: No Known Allergies (Unverified , 02/02/17) Subjective no events overnight, no bleeding, afebrile Objective Last 24 Hour Vital Signs Date Time Temp Pulse Resp B/P (MAP) Pulse Ox O2 Delivery O2 Flow Rate FiO2 02/04/17 12:11 97.2 71 20 114/58 95 Nasal Cannula 2.0 02/04/17 08:57 97.5 87 20 127/57 95 Nasal Cannula 2.0 02/04/17 08:34 69 127/69 02/04/17 08:00 72 02/04/17 04:00 97.7 88 21 112/69 95 Room Air 02/04/17 04:00 74 02/04/17 00:00 96 02/04/17 00:00 97.9 84 20 123/56 91 Nasal Cannula 2.0 21 02/03/17 20:00 107 02/03/17 20:00 99.0 101 20 129/50 91 Nasal Cannula 2.0 21 02/03/17 16:00 81 02/03/17 15:33 99.0 80 20 130/67 93 Nasal Cannula 2.0 Intake and Output 02/04/17 02/05/17 19:00 07:00 Intake Total 120 ml Balance 120 ml Intake Oral 120 ml Laboratory Tests 02/03/17 21:15: Hepatitis A IgM Antibody [Pending], Hepatitis B Surface Antigen [Pending], Hepatitis B Core IgM Antibody [Pending], Hepatitis C Antibody [Pending], HIV (1& 2) Antibody Rapid Negative 02/04/17 14:30: Random Vancomycin Level 13.5 Height (Feet): 6 Height (Inches): 2.00 Weight (Pounds): 279 General Appearance: no apparent distress EENT: normal ENT inspection Neck: normal alignment Cardiovascular: normal peripheral pulses Respiratory/Chest: chest wall non-tender Edema: trace edema Neurologic: tablet coater II-XII grossly normal, normal mood/affect Skin: normal pigmentation, warm/dry Tr Bhardwaj Feb 04, 2017 15:30
[2017-02-04 16:00] VITALS: BP 104/70
--- NOTE | 2017-02-04 16:33 | Diagnostic Imaging Report ---
Indication: SOB Technique: Scott-scale and duplex images of the upper abdomen were obtained Comparison: None Findings: There is trace pleural fluid on the left Gallbladder is unremarkable, without stones, wall thickening, nor pericholecystic fluid. Sonographic Canseco's sign is negative. Common bile duct measures 4 mm in diameter. No intrahepatic biliary ductal dilatation. Liver demonstrates normal echogenicity, no focal abnormality. Portal vein and hepatic veins are patent. Pancreas is unremarkable. The spleen is enlarged, measuring 14.9 cm long axis dimension Left kidney measures 11.6 cm in length. Right kidney measures 11.5 cm length. Both kidneys demonstrate normal echogenicity. There is no hydronephrosis. The right kidney demonstrates a mixed echogenicity lesion in the upper pole which measures 2.9 cm in diameter. Non-aneurysmal abdominal aorta . Impression: 2.9 cm right upper pole complex renal lesion. Mass or abscess not excludable. Recommend renal protocol contrast CT for further evaluation Negative for gallstones or dilated ducts Trace left pleural effusion Findings discussed by phone with Dr. Meehan at the time of interpretation
--- NOTE | 2017-02-04 16:53 | General Progress Note ---
Assessment/Plan Status Narrative renal mass Assessment/Plan recomended CT with iv contrust Subjective Constitutional: Reports: no symptoms Gastrointestinal/Abdominal: Reports: abdominal pain Genitourinary: Reports: no symptoms Allergies: Coded Allergies: No Known Allergies (Unverified , 02/02/17) Objective Last 24 Hour Vital Signs Date Time Temp Pulse Resp B/P (MAP) Pulse Ox O2 Delivery O2 Flow Rate FiO2 02/04/17 16:00 97.2 78 20 104/70 94 Nasal Cannula 2.0 02/04/17 12:11 97.2 71 20 114/58 95 Nasal Cannula 2.0 02/04/17 08:57 97.5 87 20 127/57 95 Nasal Cannula 2.0 02/04/17 08:34 69 127/69 02/04/17 08:00 72 02/04/17 04:00 97.7 88 21 112/69 95 Room Air 02/04/17 04:00 74 02/04/17 00:00 96 02/04/17 00:00 97.9 84 20 123/56 91 Nasal Cannula 2.0 21 02/03/17 20:00 107 02/03/17 20:00 99.0 101 20 129/50 91 Nasal Cannula 2.0 21 Intake and Output 02/04/17 02/05/17 19:00 07:00 Intake Total 120 ml Balance 120 ml Intake Oral 120 ml # Voids 2 Laboratory Tests 02/03/17 21:15: Hepatitis A IgM Antibody [Pending], Hepatitis B Surface Antigen [Pending], Hepatitis B Core IgM Antibody [Pending], Hepatitis C Antibody [Pending], HIV (1& 2) Antibody Rapid Negative 02/04/17 14:30: Random Vancomycin Level 13.5 Height (Feet): 6 Height (Inches): 2.00 Weight (Pounds): 279 Abdomen: normal bowel sounds Pelvis: normal external exam Sachin Mills MD Feb 04, 2017 16:53
[2017-02-04] MEDS ORDERED: Acetaminophen 650 MG SUPP RECTAL PRN (17:00)
--- NOTE | 2017-02-04 17:26 | Infectious Diseases Prog Note ---
Assessment/Plan Problems: (1) HCAP (healthcare-associated pneumonia) Assessment & Plan: on vancomycin and zosyn empirically, await sputum culture (2) Sepsis Assessment & Plan: rule out renal abscess , await blood culture and continue wide spectrum antibiotics pending images results (3) COPD (chronic obstructive pulmonary disease) Assessment & Plan: continue inhalers, and oxygen (4) CAD (coronary artery disease) Assessment & Plan: continue cardiac meds , monitor in tele (5) Renal mass of unknown nature Assessment & Plan: rule out abscess VS tumor, will order MRI of the abdomen , recommend urology consult Subjective ROS Limited/Unobtainable: Yes Allergies: Coded Allergies: No Known Allergies (Unverified , 02/02/17) Objective Vital Signs Last 24 Hour Vital Signs Date Time Temp Pulse Resp B/P (MAP) Pulse Ox O2 Delivery O2 Flow Rate FiO2 02/04/17 16:00 97.2 78 20 104/70 94 Nasal Cannula 2.0 02/04/17 12:11 97.2 71 20 114/58 95 Nasal Cannula 2.0 02/04/17 08:57 97.5 87 20 127/57 95 Nasal Cannula 2.0 02/04/17 08:34 69 127/69 02/04/17 08:00 72 02/04/17 04:00 97.7 88 21 112/69 95 Room Air 02/04/17 04:00 74 02/04/17 00:00 96 02/04/17 00:00 97.9 84 20 123/56 91 Nasal Cannula 2.0 21 02/03/17 20:00 107 02/03/17 20:00 99.0 101 20 129/50 91 Nasal Cannula 2.0 21 Height (Feet): 6 Height (Inches): 2.00 Weight (Pounds): 279 General Appearance: WD/WN, no acute distress HEENT: normocephalic, atraumatic, anicteric, mucous membranes moist Respiratory/Chest: chest wall non-tender, lungs clear, normal breath sounds, no respiratory distress, no accessory muscle use Cardiovascular: normal peripheral pulses, normal rate, regular rhythm, no gallop/murmur, no JVD Abdomen: normal bowel sounds, soft, non tender, no organomegaly, non distended , no mass, no scars Extremities: no cyanosis, no clubbing Skin: no rash, no lesions, no ulcers Microbiology Date/Time Source Procedure Growth Status 02/02/17 21:30 Blood Blood Culture - Preliminary NO GROWTH AFTER 24 HOURS Resulted 02/02/17 21:15 Blood Blood Culture - Preliminary NO GROWTH AFTER 24 HOURS Resulted 02/03/17 11:30 Sputum Gram Stain - Final Resulted 02/03/17 11:30 Sputum Sputum Culture - Preliminary NO GROWTH AFTER 24 HOURS Resulted 02/02/17 23:51 Rectum VRE Culture - Final Complete Laboratory Tests Test 02/03/17 21:15 02/04/17 14:30 Hepatitis A IgM Antibody Pending Hepatitis B Surface Antigen Pending Hepatitis B Core IgM Antibody Pending Hepatitis C Antibody Pending HIV (1&2) Antibody Rapid Negative (NEGATIVE) Random Vancomycin Level 13.5 ug/mL Current Medications Medications (Trade) Dose Ordered Sig/Ruma Route PRN Reason Start Time Stop Time Status Last Admin Dose Admin Acetaminophen (Tylenol) 650 mg Q4H PRN RECTAL Mild Pain (Pain Scale 1-3) 02/04/17 17:00 03/05/17 16:59 Amlodipine Besylate (Norvasc) 5 mg DAILY ORAL 02/05/17 09:00 03/05/17 08:59 Ascorbic Acid (Vitamin C) 500 mg DAILY ORAL 02/05/17 09:00 03/05/17 08:59 Aspirin (ASA) 81 mg DAILY ORAL 02/05/17 09:00 03/05/17 08:59 Ferrous Sulfate (Feosol) 325 mg DAILY ORAL 02/05/17 09:00 03/05/17 08:59 Piperacillin Sod/ Tazobactam Sod 3.375 gm/Dextrose 110 ml @ 27.5 mls/hr EVERY 8 HOURS IVPB 02/04/17 22:00 02/09/17 21:59 Promethazine HCl/ Codeine (Phenergan with Codeine) 5 ml Q4H PRN ORAL For Cough 02/04/17 17:00 03/05/17 16:59 Tamsulosin HCl (Flomax) 0.4 mg DAILY ORAL 02/05/17 09:00 03/05/17 08:59 Vancomycin HCl (Vanco rx to dose) 1 ea DAILYPRN PRN MISC Per rx protocol 02/05/17 09:00 03/06/17 08:59 Vancomycin HCl/ Dextrose 250 ml @ 125 mls/hr 0300,1500 IVPB 02/05/17 03:00 02/08/17 14:29 Zinc Sulfate (Zinc Sulfate) 220 mg DAILY ORAL 02/05/17 09:00 03/05/17 08:59 Perez Anderson M.D. Feb 04, 2017 17:26
[2017-02-04 20:00] VITALS: BP 127/67
--- NOTE | 2017-02-04 20:58 | General Progress Note ---
Assessment/Plan Problem List: (1) Pneumonia ICD Codes: J18.9 - Pneumonia, unspecified organism SNOMED: 104036146 (2) Psychosis ICD Codes: F29 - Unspecified psychosis not due to a substance or known physiological condition SNOMED: 97186445 (3) Sepsis ICD Codes: A41.9 - Sepsis, unspecified organism SNOMED: 88268049 (4) Renal mass of unknown nature ICD Codes: N28.89 - Other specified disorders of kidney and ureter SNOMED: 044242283 Status: progressing Assessment/Plan renal mass consulted heme/onc and urology for renal mass afebrile pna and sepsis leukocytosis improving r/o renal mass vs abscess Subjective ROS Limited/Unobtainable: Yes Allergies: Coded Allergies: No Known Allergies (Unverified , 02/02/17) Objective Last 24 Hour Vital Signs Date Time Temp Pulse Resp B/P (MAP) Pulse Ox O2 Delivery O2 Flow Rate FiO2 02/04/17 20:00 97.7 68 18 127/67 97 Nasal Cannula 2.0 02/04/17 16:00 97.2 78 20 104/70 94 Nasal Cannula 2.0 02/04/17 12:11 97.2 71 20 114/58 95 Nasal Cannula 2.0 02/04/17 08:57 97.5 87 20 127/57 95 Nasal Cannula 2.0 02/04/17 08:34 69 127/69 02/04/17 08:00 72 02/04/17 04:00 97.7 88 21 112/69 95 Room Air 02/04/17 04:00 74 02/04/17 00:00 96 02/04/17 00:00 97.9 84 20 123/56 91 Nasal Cannula 2.0 21 Intake and Output 02/04/17 02/05/17 19:00 07:00 Intake Total 240 ml Balance 240 ml Intake Oral 240 ml # Voids 3 Laboratory Tests 02/03/17 21:15: Hepatitis A IgM Antibody [Pending], Hepatitis B Surface Antigen [Pending], Hepatitis B Core IgM Antibody [Pending], Hepatitis C Antibody [Pending], HIV (1& 2) Antibody Rapid Negative 02/04/17 14:30: Random Vancomycin Level 13.5 Height (Feet): 6 Height (Inches): 2.00 Weight (Pounds): 279 General Appearance: confused Respiratory/Chest: lungs clear Abdomen: soft Connor Oliva MD Feb 04, 2017 20:58
[2017-02-05] MEDS: Promethazine/Codeine 5ml UD ORAL PRN ×2 (02:10→09:42)
[2017-02-05] MEDS ORDERED: Vancomycin 1.5gm/D5W 250ml 250 ML IVPB SCH (03:00)
[2017-02-05 04:00] VITALS: BP 123/56
[2017-02-05] MEDS: Piperacillin/Tazobactam 3.375 GM in D5W 110 ML IVPB SCH ×2 (04:03→14:29)
[2017-02-05 08:00] VITALS: BP 91/50
[2017-02-05 09:26] LABS: BASOPHILS % (AUTO) 1.1 % (0.0-2.0); EOSINOPHILS % (AUTO) 2.6 % (0.0-3.0); LYMPHOCYTES % (AUTO) 24.8 % (20.0-45.0); MEAN CORPUSCULAR HGB CONC 32.7 G/DL (32.0-36.0); MEAN CORPUSCULAR VOLUME 98 FL (80-99); MEAN PLATELET VOLUME 6.5 FL (6.5-10.1); NEUTROPHILS % (AUTO) 61.6 % (45.0-75.0); PLATELET COUNT 137 K/UL (150-450); RED BLOOD COUNT 3.87 M/UL (4.70-6.10); RED CELL DISTRIBUTION WIDTH 12.9 % (11.6-14.8); WHITE BLOOD COUNT 10.6 K/UL (4.8-10.8)
[2017-02-05] MEDS: Ascorbic Acid 500mg tab ORAL SCH (09:42)
[2017-02-05] MEDS: Aspirin Baby 81mg ORAL SCH (09:42)
[2017-02-05] MEDS: Zinc Sulfate 220mg cap ORAL SCH (09:42)
[2017-02-05] MEDS: Tamsulosin 0.4mg cap ORAL SCH (09:42)
[2017-02-05 09:47] LABS: ALANINE AMINOTRANSFERASE 18 U/L (3-41); ALBUMIN/GLOBULIN RATIO 0.6 (1.0-2.7); ANION GAP 9 (5-15); ASPARTATE AMINO TRANSFERASE 30 U/L (5-40); CALCIUM 8.6 mg/dL (8.6-10.2); CARBON DIOXIDE 28 mEQ/L (20-30); CHLORIDE 100 mEQ/L (98-107); CRP QUANT 11.2 mg/dL (< 0.5); GLOMERULAR FILTRATION RATE > 60 mL/min (>60); HEMOLYSIS 2; MAGNESIUM 1.6 mg/dL (1.7-2.5); PHOSPHORUS 4.1 mg/dL (2.5-4.8); POTASSIUM 4.2 mEQ/L (3.4-4.9); SODIUM 137 mEQ/L (135-145); TOTAL PROTEIN 6.3 g/dL (6.6-8.7)
--- NOTE | 2017-02-05 10:47 | Consultation ---
Consult Note Consult Note asked to eval for renal mass Patient admitted with sepsis and dehydration Kidney WILLIE: Impression: 2.9 cm right upper pole complex renal lesion. Mass or abscess not excludable. Recommend renal protocol contrast CT for further evaluation Negative for gallstones or dilated ducts Trace left pleural effusion since admit: Leukocytosis resolved- Renal parameters normalized- Patinet has proteinuria examined- data reviewed Assessment/Plan Dehydration resolved- Renal mass in WILLIE Pneumonia COPD CAD Sepsis Plan: CT Urogram DC when OK with ID Per orders KWADWO VILLASEÑOR Feb 05, 2017 10:47
[2017-02-05 11:17] LABS: CHOLESTEROL 118 mg/dL (< 200); CHOLESTEROL/HDL RATIO 3.3 (3.3-4.4); HEMOLYSIS 4; LDL CHOLESTEROL (CALC.) 66 mg/dL (60-99)
[2017-02-05 11:18] LABS: HEMOGLOBIN A1C 4.5 % (< 6.0)
[2017-02-05] MEDS: D5NS 1,000 ML IV SCH ×2 (11:25→23:47)
[2017-02-05 11:39] VITALS: BP 98/55
--- NOTE | 2017-02-05 15:11 | Diagnostic Imaging Report ---
Indication: Right renal mass Technique: Continuous dynamic, helical transaxial imaging of the abdomen and pelvis was obtained from the lung bases to the pubic symphysis during intravenous contrast administration. Noncontrast imaging also performed. Post contrast imaging] or of venous and delayed phases of enhancement. Coronal 2-D reformats were also obtained. Study obtained in a Siemens sensation [address] Total Dose length Product (DLP): [address] Dose Index Volume (CTDIvol): 0.15, 19.75, 12.13, 19.71, 19.75, 19.95, 266.9 mGy Comparison: Ultrasound 02/04/17 Findings: There is a complex cystic, multiseptated relatively nonenhancing mass measuring 2.5 CM within the right kidney. There is some perinephric stranding surrounding both kidneys fairly symmetrically. There is no hydronephrosis. There are no renal stones identified. Renal parenchymal enhancement is normal. There is no evidence of bacterial nephritis. There is no evidence of uroepithelial thickening. The urinary bladder is unremarkable. There is dense left basilar consolidation consistent with pneumonia. No significant pleural effusion seen. Coronary calcifications are present. Liver and spleen are unremarkable. Gallbladder, pancreas, adrenal glands appear unremarkable. Appendix is normal. There is no free fluid or free air. There is narrowing of intervertebral discs and accompanying endplate osteophyte formation. Hypertrophied facet joints also demonstrated.. Impression: 2.5 cm complex cystic mass within the right kidney. Differential considerations include cystic renal cell carcinoma and infection. Clinical correlation and followup examinations are recommended. Left basilar consolidation most likely representing. Atherosclerotic disease. Spondylosis The CT scanner at [facility] is accredited by the [employer] and the scans are performed using protocols designed to limit radiation exposure to as low as reasonably achievable to attain images of sufficient resolution adequate for diagnostic evaluation.
--- NOTE | 2017-02-05 15:48 | General Progress Note ---
Assessment/Plan Assessment/Plan ASSESSMENT AND PLAN: 1. Thrombocytopenia, likely secondary to underlying infection and sepsis. Continue to closely monitor. --> hiv and hep panel negative --> improving ---> if the plt count less than 10k, transfuse immediately. If less than 20k and febrile, transfuse. If less than 50k and bleeding, transfuse. 2. 2.5 cm cystic mass R kidney --> urology consultation appreciated 3. Macrocytosis, likely related to medication versus other causes. Evaluate further with B12 and folate levels. 4. Leukocytosis, likely secondary to reactive process infection ---> on iv abx. --> resolved 5. Coronary artery disease. Continue to closely monitor. 6. Chronic obstructive pulmonary disease, presented from nursing home facility. Subjective Constitutional: Reports: no symptoms HEENT: Reports: no symptoms Cardiovascular: Reports: no symptoms Respiratory: Reports: no symptoms Gastrointestinal/Abdominal: Reports: no symptoms Genitourinary: Reports: no symptoms Neurologic/Psychiatric: Reports: no symptoms Endocrine: Reports: no symptoms Hematologic/Lymphatic: Reports: anemia Allergies: Coded Allergies: No Known Allergies (Unverified , 02/02/17) Subjective afebrile, NAD Objective Last 24 Hour Vital Signs Date Time Temp Pulse Resp B/P (MAP) Pulse Ox O2 Delivery O2 Flow Rate FiO2 02/05/17 11:39 97.2 75 19 98/55 97 Nasal Cannula 2.0 02/05/17 09:00 76 91/50 02/05/17 08:00 97.5 76 18 91/50 94 Nasal Cannula 2.0 02/05/17 04:00 97.8 70 19 123/56 93 Room Air 02/04/17 20:00 97.7 68 18 127/67 97 Nasal Cannula 2.0 02/04/17 16:00 97.2 78 20 104/70 94 Nasal Cannula 2.0 Laboratory Tests 02/05/17 09:00: White Blood Count 10.6, Red Blood Count 3.87L, Hemoglobin 12.4L, Hematocrit 37.9L, Mean Corpuscular Volume 98, Mean Corpuscular Hemoglobin 32.0H, Mean Corpuscular Hemoglobin Concent 32.7, Red Cell Distribution Width 12.9, Platelet Count 137L, Mean Platelet Volume 6.5, Neutrophils (%) (Auto) 61.6, Lymphocytes ( %) (Auto) 24.8, Monocytes (%) (Auto) 10.0, Eosinophils (%) (Auto) 2.6, Basophils (%) (Auto) 1.1, Sodium Level 137, Potassium Level 4.2, Chloride Level 100, Carbon Dioxide Level 28, Anion Gap 9, Blood Urea Nitrogen 16, Creatinine 1.0, Estimat Glomerular Filtration Rate > 60, Glucose Level 91, Hemoglobin A1c 4.5, Uric Acid 4.0, Calcium Level 8.6, Phosphorus Level 4.1, Magnesium Level 1.6L, Total Bilirubin 0.6, Aspartate Amino Transf (AST/SGOT) 30, Alanine Aminotransferase (ALT/SGPT) 18, Alkaline Phosphatase 51, Total Creatine Kinase 141, C-Reactive Protein, Quantitative 11.2H, Pro-B-Type Natriuretic Peptide 2656H, Total Protein 6.3L, Albumin 2.5L, Globulin 3.8, Albumin/Globulin Ratio 0.6L, Triglycerides Level 79, Cholesterol Level 118, LDL Cholesterol 66, HDL Cholesterol 36, Cholesterol/HDL Ratio 3.3, Thyroid Stimulating Hormone (TSH) 4.830H Height (Feet): 6 Height (Inches): 2.00 Weight (Pounds): 279 General Appearance: no apparent distress EENT: PERRL/EOMI Neck: normal alignment Abdomen: no organomegaly, no mass Edema: mild edema Neurologic: promotional demonstrator II-XII grossly normal Skin: normal pigmentation Tr Bhardwaj Feb 05, 2017 15:48
[2017-02-05 16:09] VITALS: BP 132/60
--- NOTE | 2017-02-05 16:28 | Infectious Diseases Prog Note ---
Assessment/Plan Problems: (1) HCAP (healthcare-associated pneumonia) Assessment & Plan: on vancomycin and zosyn empirically, await sputum culture (2) Sepsis Assessment & Plan: rule out renal abscess , await blood culture and continue wide spectrum antibiotics pending images results (3) COPD (chronic obstructive pulmonary disease) Assessment & Plan: continue inhalers, and oxygen (4) CAD (coronary artery disease) Assessment & Plan: continue cardiac meds , monitor in tele (5) Renal mass of unknown nature Assessment & Plan: unclear whether abscess VS tumor, had CT of the abdomen , recommend urology consult, and repeated image in 2 weeks after being on antibiotics to confirm diagnosis Subjective ROS Limited/Unobtainable: Yes Allergies: Coded Allergies: No Known Allergies (Unverified , 02/02/17) Objective Vital Signs Last 24 Hour Vital Signs Date Time Temp Pulse Resp B/P (MAP) Pulse Ox O2 Delivery O2 Flow Rate FiO2 02/05/17 16:09 97.7 78 19 132/60 96 Nasal Cannula 3.0 02/05/17 11:39 97.2 75 19 98/55 97 Nasal Cannula 2.0 02/05/17 09:00 76 91/50 02/05/17 08:00 97.5 76 18 91/50 94 Nasal Cannula 2.0 02/05/17 04:00 97.8 70 19 123/56 93 Room Air 02/04/17 20:00 97.7 68 18 127/67 97 Nasal Cannula 2.0 Height (Feet): 6 Height (Inches): 2.00 Weight (Pounds): 279 General Appearance: WD/WN, no acute distress HEENT: normocephalic, atraumatic, anicteric Respiratory/Chest: chest wall non-tender, no respiratory distress, no accessory muscle use, decreased breath sounds, crackles/rales Cardiovascular: normal peripheral pulses, normal rate, regular rhythm, no gallop/murmur Abdomen: normal bowel sounds, soft, non tender, no organomegaly, non distended , no mass, no scars Extremities: no cyanosis, no clubbing Skin: no rash, no lesions, no ulcers Neurologic/Psychiatric: alert Microbiology Date/Time Source Procedure Growth Status 02/02/17 21:30 Blood Blood Culture - Preliminary NO GROWTH AFTER 48 HOURS Resulted 02/02/17 21:15 Blood Blood Culture - Preliminary NO GROWTH AFTER 48 HOURS Resulted 02/03/17 11:30 Sputum Gram Stain - Final Complete 02/03/17 11:30 Sputum Sputum Culture - Final NORMAL UPPER RESPIRATORY LISA PRESENT Complete 02/02/17 23:51 Nasal Nares MRSA Culture - Final NO METHICILLIN RESISTANT STAPH AUREUS... Complete 02/02/17 23:51 Rectum VRE Culture - Final Complete Laboratory Tests Test 02/05/17 09:00 White Blood Count 10.6 K/UL (4.8-10.8) Red Blood Count 3.87 M/UL (4.70-6.10) L Hemoglobin 12.4 G/DL (14.2-18.0) L Hematocrit 37.9 % (42.0-52.0) L Mean Corpuscular Volume 98 FL (80-99) Mean Corpuscular Hemoglobin 32.0 PG (27.0-31.0) H Mean Corpuscular Hemoglobin Concent 32.7 G/DL (32.0-36.0) Red Cell Distribution Width 12.9 % (11.6-14.8) Platelet Count 137 K/UL (150-450) L Mean Platelet Volume 6.5 FL (6.5-10.1) Neutrophils (%) (Auto) 61.6 % (45.0-75.0) Lymphocytes (%) (Auto) 24.8 % (20.0-45.0) Monocytes (%) (Auto) 10.0 % (1.0-10.0) Eosinophils (%) (Auto) 2.6 % (0.0-3.0) Basophils (%) (Auto) 1.1 % (0.0-2.0) Sodium Level 137 mEQ/L (135-145) Potassium Level 4.2 mEQ/L (3.4-4.9) Chloride Level 100 mEQ/L (98-107) Carbon Dioxide Level 28 mEQ/L (20-30) Anion Gap 9 (5-15) Blood Urea Nitrogen 16 mg/dL (7-23) Creatinine 1.0 mg/dL (0.7-1.2) Estimat Glomerular Filtration Rate > 60 mL/min (>60) Glucose Level 91 mg/dL (74-106) Hemoglobin A1c 4.5 % (< 6.0) Uric Acid 4.0 mg/dL (3.0-7.5) Calcium Level 8.6 mg/dL (8.6-10.2) Phosphorus Level 4.1 mg/dL (2.5-4.8) Magnesium Level 1.6 mg/dL (1.7-2.5) L Total Bilirubin 0.6 mg/dL (0.0-1.2) Aspartate Amino Transf (AST/SGOT) 30 U/L (5-40) Alanine Aminotransferase (ALT/SGPT) 18 U/L (3-41) Alkaline Phosphatase 51 U/L (40-129) Total Creatine Kinase 141 U/L (38-174) C-Reactive Protein, Quantitative 11.2 mg/dL (< 0.5) H Pro-B-Type Natriuretic Peptide 2656 pg/mL (0-125) H Total Protein 6.3 g/dL (6.6-8.7) L Albumin 2.5 g/dL (3.5-5.2) L Globulin 3.8 g/dL Albumin/Globulin Ratio 0.6 (1.0-2.7) L Triglycerides Level 79 mg/dL (< 150) Cholesterol Level 118 mg/dL (< 200) LDL Cholesterol 66 mg/dL (60-99) HDL Cholesterol 36 mg/dL (> 60) Cholesterol/HDL Ratio 3.3 (3.3-4.4) Thyroid Stimulating Hormone (TSH) 4.830 uIU/mL (0.300-4.500) Current Medications Medications (Trade) Dose Ordered Sig/Ruma Route PRN Reason Start Time Stop Time Status Last Admin Dose Admin Acetaminophen (Tylenol) 650 mg Q4H PRN RECTAL Mild Pain (Pain Scale 1-3) 02/04/17 17:00 03/05/17 16:59 Amlodipine Besylate (Norvasc) 5 mg DAILY ORAL 02/05/17 09:00 03/05/17 08:59 Ascorbic Acid (Vitamin C) 500 mg DAILY ORAL 02/05/17 09:00 03/05/17 08:59 02/05/17 09:42 Aspirin (ASA) 81 mg DAILY ORAL 02/05/17 09:00 03/05/17 08:59 02/05/17 09:42 Dextrose/Sodium Chloride 1,000 ml @ 75 mls/hr [id number] IV 02/05/17 11:00 03/07/17 10:59 02/05/17 11:25 Piperacillin Sod/ Tazobactam Sod 3.375 gm/Dextrose 110 ml @ 27.5 mls/hr EVERY 8 HOURS IVPB 02/04/17 22:00 02/05/17 21:00 02/05/17 14:29 Piperacillin Sod/ Tazobactam Sod 3.375 gm/Dextrose 110 ml @ 220 mls/hr Q6HR IVPB 02/06/17 00:00 02/13/17 00:00 Promethazine HCl/ Codeine (Phenergan with Codeine) 5 ml Q4H PRN ORAL For Cough 02/04/17 17:00 03/05/17 16:59 02/05/17 09:42 Tamsulosin HCl (Flomax) 0.4 mg DAILY ORAL 02/05/17 09:00 03/05/17 08:59 02/05/17 09:42 Vancomycin HCl (Vanco rx to dose) 1 ea DAILYPRN PRN MISC Per rx protocol 02/05/17 09:00 03/06/17 08:59 Vancomycin HCl/ Dextrose 250 ml @ 125 mls/hr Q12HR@0800,2000 IVPB 02/05/17 20:00 02/10/17 02:59 Zinc Sulfate (Zinc Sulfate) 220 mg DAILY ORAL 02/05/17 09:00 03/05/17 08:59 02/05/17 09:42 Perez Anderson M.D. Feb 05, 2017 16:28
--- NOTE | 2017-02-05 18:58 | Pulmonology Progress Note ---
Assessment/Plan Problems: (1) Pneumonia (2) Sepsis (3) COPD (chronic obstructive pulmonary disease) (4) CAD (coronary artery disease) (5) Psychosis Assessment/Plan adjust abx hematology consult appreciated. dvt prophylaxis med/surg psych consult. Subjective ROS Limited/Unobtainable: No Constitutional: Reports: no symptoms HEENT: Repors: no symptoms Respiratory: Reports: no symptoms Allergies: Coded Allergies: No Known Allergies (Unverified , 02/02/17) Objective Last 24 Hour Vital Signs Date Time Temp Pulse Resp B/P (MAP) Pulse Ox O2 Delivery O2 Flow Rate FiO2 02/05/17 18:29 97.7 02/05/17 16:09 97.7 78 19 132/60 96 Nasal Cannula 3.0 02/05/17 11:39 97.2 75 19 98/55 97 Nasal Cannula 2.0 02/05/17 09:00 76 91/50 02/05/17 08:00 97.5 76 18 91/50 94 Nasal Cannula 2.0 02/05/17 04:00 97.8 70 19 123/56 93 Room Air 02/04/17 20:00 97.7 68 18 127/67 97 Nasal Cannula 2.0 Intake and Output 02/05/17 02/06/17 19:00 07:00 Intake Total 335.0 ml Balance 335.0 ml IV Total 335.0 ml General Appearance: WD/WN HEENT: normocephalic Respiratory/Chest: chest wall non-tender, lungs clear Cardiovascular: normal peripheral pulses, normal rate Abdomen: normal bowel sounds, soft, non tender 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 Complete 02/02/17 23:51 Rectum VRE Culture - Final Complete Laboratory Tests 02/05/17 09:00: White Blood Count 10.6, Red Blood Count 3.87L, Hemoglobin 12.4L, Hematocrit 37.9L, Mean Corpuscular Volume 98, Mean Corpuscular Hemoglobin 32.0H, Mean Corpuscular Hemoglobin Concent 32.7, Red Cell Distribution Width 12.9, Platelet Count 137L, Mean Platelet Volume 6.5, Neutrophils (%) (Auto) 61.6, Lymphocytes ( %) (Auto) 24.8, Monocytes (%) (Auto) 10.0, Eosinophils (%) (Auto) 2.6, Basophils (%) (Auto) 1.1, Sodium Level 137, Potassium Level 4.2, Chloride Level 100, Carbon Dioxide Level 28, Anion Gap 9, Blood Urea Nitrogen 16, Creatinine 1.0, Estimat Glomerular Filtration Rate > 60, Glucose Level 91, Hemoglobin A1c 4.5, Uric Acid 4.0, Calcium Level 8.6, Phosphorus Level 4.1, Magnesium Level 1.6L, Total Bilirubin 0.6, Aspartate Amino Transf (AST/SGOT) 30, Alanine Aminotransferase (ALT/SGPT) 18, Alkaline Phosphatase 51, Total Creatine Kinase 141, C-Reactive Protein, Quantitative 11.2H, Pro-B-Type Natriuretic Peptide 2656H, Total Protein 6.3L, Albumin 2.5L, Globulin 3.8, Albumin/Globulin Ratio 0.6L, Triglycerides Level 79, Cholesterol Level 118, LDL Cholesterol 66, HDL Cholesterol 36, Cholesterol/HDL Ratio 3.3, Thyroid Stimulating Hormone (TSH) 4.830H Current Medications Medications (Trade) Dose Ordered Sig/Ruma Route PRN Reason Start Time Stop Time Status Last Admin Dose Admin Acetaminophen (Tylenol) 650 mg Q4H PRN RECTAL Mild Pain (Pain Scale 1-3) 02/04/17 17:00 03/05/17 16:59 02/05/17 17:59 Amlodipine Besylate (Norvasc) 5 mg DAILY ORAL 02/05/17 09:00 03/05/17 08:59 Ascorbic Acid (Vitamin C) 500 mg DAILY ORAL 02/05/17 09:00 03/05/17 08:59 02/05/17 09:42 Aspirin (ASA) 81 mg DAILY ORAL 02/05/17 09:00 03/05/17 08:59 02/05/17 09:42 Dextrose/Sodium Chloride 1,000 ml @ 75 mls/hr [id number] IV 02/05/17 11:00 03/07/17 10:59 02/05/17 11:25 Piperacillin Sod/ Tazobactam Sod 3.375 gm/Dextrose 110 ml @ 27.5 mls/hr EVERY 8 HOURS IVPB 02/04/17 22:00 02/05/17 21:00 02/05/17 14:29 Piperacillin Sod/ Tazobactam Sod 3.375 gm/Dextrose 110 ml @ 220 mls/hr Q6HR IVPB 02/06/17 00:00 02/13/17 00:00 Promethazine HCl/ Codeine (Phenergan with Codeine) 5 ml Q4H PRN ORAL For Cough 02/04/17 17:00 03/05/17 16:59 02/05/17 09:42 Tamsulosin HCl (Flomax) 0.4 mg DAILY ORAL 02/05/17 09:00 03/05/17 08:59 02/05/17 09:42 Vancomycin HCl (Vanco rx to dose) 1 ea DAILYPRN PRN MISC Per rx protocol 02/05/17 09:00 03/06/17 08:59 Vancomycin HCl/ Dextrose 250 ml @ 125 mls/hr Q12HR@0800,2000 IVPB 02/05/17 20:00 02/10/17 02:59 Zinc Sulfate (Zinc Sulfate) 220 mg DAILY ORAL 02/05/17 09:00 03/05/17 08:59 02/05/17 09:42 CELINA COLLIER Feb 05, 2017 18:58
[2017-02-05 19:54] VITALS: BP 102/58
[2017-02-05] MEDS: Vancomycin 1.5gm/D5W 250ml 250 ML IVPB SCH (20:00)
--- NOTE | 2017-02-05 20:15 | General Progress Note ---
Assessment/Plan Problem List: (1) Pneumonia ICD Codes: J18.9 - Pneumonia, unspecified organism SNOMED: 657199803 (2) Psychosis ICD Codes: F29 - Unspecified psychosis not due to a substance or known physiological condition SNOMED: 49425522 (3) Sepsis ICD Codes: A41.9 - Sepsis, unspecified organism SNOMED: 44053802 (4) Renal mass of unknown nature ICD Codes: N28.89 - Other specified disorders of kidney and ureter SNOMED: 090151409 Status: progressing Assessment/Plan renal mass pna and sepsis leukocytosis improving r/o renal mass vs abscess reviewed chart and labs Subjective ROS Limited/Unobtainable: Yes Allergies: Coded Allergies: No Known Allergies (Unverified , 02/02/17) Objective Last 24 Hour Vital Signs Date Time Temp Pulse Resp B/P (MAP) Pulse Ox O2 Delivery O2 Flow Rate FiO2 02/05/17 19:54 97.0 75 20 102/58 96 Nasal Cannula 3.0 02/05/17 18:29 97.7 02/05/17 16:09 97.7 78 19 132/60 96 Nasal Cannula 3.0 02/05/17 11:39 97.2 75 19 98/55 97 Nasal Cannula 2.0 02/05/17 09:00 76 91/50 02/05/17 08:00 97.5 76 18 91/50 94 Nasal Cannula 2.0 02/05/17 04:00 97.8 70 19 123/56 93 Room Air Intake and Output 02/05/17 02/06/17 19:00 07:00 Intake Total 335.0 ml Balance 335.0 ml IV Total 335.0 ml Laboratory Tests 02/05/17 09:00: White Blood Count 10.6, Red Blood Count 3.87L, Hemoglobin 12.4L, Hematocrit 37.9L, Mean Corpuscular Volume 98, Mean Corpuscular Hemoglobin 32.0H, Mean Corpuscular Hemoglobin Concent 32.7, Red Cell Distribution Width 12.9, Platelet Count 137L, Mean Platelet Volume 6.5, Neutrophils (%) (Auto) 61.6, Lymphocytes ( %) (Auto) 24.8, Monocytes (%) (Auto) 10.0, Eosinophils (%) (Auto) 2.6, Basophils (%) (Auto) 1.1, Sodium Level 137, Potassium Level 4.2, Chloride Level 100, Carbon Dioxide Level 28, Anion Gap 9, Blood Urea Nitrogen 16, Creatinine 1.0, Estimat Glomerular Filtration Rate > 60, Glucose Level 91, Hemoglobin A1c 4.5, Uric Acid 4.0, Calcium Level 8.6, Phosphorus Level 4.1, Magnesium Level 1.6L, Total Bilirubin 0.6, Aspartate Amino Transf (AST/SGOT) 30, Alanine Aminotransferase (ALT/SGPT) 18, Alkaline Phosphatase 51, Total Creatine Kinase 141, C-Reactive Protein, Quantitative 11.2H, Pro-B-Type Natriuretic Peptide 2656H, Total Protein 6.3L, Albumin 2.5L, Globulin 3.8, Albumin/Globulin Ratio 0.6L, Triglycerides Level 79, Cholesterol Level 118, LDL Cholesterol 66, HDL Cholesterol 36, Cholesterol/HDL Ratio 3.3, Thyroid Stimulating Hormone (TSH) 4.830H Height (Feet): 6 Height (Inches): 2.00 Weight (Pounds): 279 EENT: normal ENT inspection Cardiovascular: normal rate Respiratory/Chest: lungs clear Connor Oliva MD Feb 05, 2017 20:15
[2017-02-05] MEDS: Zoysn 3.37gm in D5W 110ml IVPB SCH (23:47)
[2017-02-06] VITALS: BP 116/69
[2017-02-06 04:00] VITALS: BP 110/59
[2017-02-06] MEDS: Zoysn 3.37gm in D5W 110ml IVPB SCH ×4 (04:57→23:27)
[2017-02-06 08:00] VITALS: BP 103/60
[2017-02-06] MEDS ORDERED: Tubing IV Secondary IV ONE (08:53)
[2017-02-06] MEDS: Vancomycin 1.5gm/D5W 250ml 250 ML IVPB SCH ×2 (09:46→20:00)
[2017-02-06] MEDS: Ascorbic Acid 500mg tab ORAL SCH (09:48)
[2017-02-06] MEDS: Zinc Sulfate 220mg cap ORAL SCH (09:48)
[2017-02-06] MEDS: Tamsulosin 0.4mg cap ORAL SCH (09:48)
[2017-02-06] MEDS: Aspirin Baby 81mg ORAL SCH (09:50)
[2017-02-06] MEDS: D5NS 1,000 ML IV SCH (13:40)
--- NOTE | 2017-02-06 14:04 | General Progress Note ---
Assessment/Plan Status: stable Assessment/Plan status: Dehydration resolved- Renal mass in [place], CT confirms Pneumonia COPD CAD Sepsis Plan: CT Urogram done- + Renal mass DC when OK with ID, fu as OP , re CT in 2 -3 months Per orders Subjective ROS Limited/Unobtainable: No Constitutional: Reports: malaise Allergies: Coded Allergies: No Known Allergies (Unverified , 02/02/17) Objective Last 24 Hour Vital Signs Date Time Temp Pulse Resp B/P (MAP) Pulse Ox O2 Delivery O2 Flow Rate FiO2 02/06/17 09:50 75 103/60 02/06/17 08:00 98.1 75 18 103/60 95 Room Air 02/06/17 04:00 97.7 77 20 110/59 96 Nasal Cannula 3.0 02/06/17 00:00 97.3 74 116/69 97 Nasal Cannula 3.0 02/05/17 19:54 97.0 75 20 102/58 96 Nasal Cannula 3.0 02/05/17 18:29 97.7 02/05/17 16:09 97.7 78 19 132/60 96 Nasal Cannula 3.0 Intake and Output 02/06/17 02/07/17 19:00 07:00 Intake Total 520 ml Balance 520 ml Intake Oral 520 ml # Voids 1 Height (Feet): 6 Height (Inches): 2.00 Weight (Pounds): 279 General Appearance: no apparent distress Objective no change in PE KWADWO VILLASEÑOR Feb 06, 2017 14:04
[2017-02-06 17:00] VITALS: BP 108/53
--- NOTE | 2017-02-06 17:12 | Infectious Diseases Prog Note ---
Assessment/Plan Problems: (1) HCAP (healthcare-associated pneumonia) Assessment & Plan: on vancomycin and zosyn empirically, await sputum culture (2) Sepsis Assessment & Plan: suspect renal abscess , blood culture is negative . continue wide spectrum antibiotics for two weeks and repeat images for follow up (3) COPD (chronic obstructive pulmonary disease) Assessment & Plan: continue inhalers, and oxygen (4) CAD (coronary artery disease) Assessment & Plan: continue cardiac meds , monitor in tele (5) Renal mass of unknown nature Assessment & Plan: unclear whether abscess VS tumor, had CT of the abdomen , recommend urology consult, and repeated image in 2 weeks after being on antibiotics to confirm diagnosis Subjective Constitutional: Reports: no symptoms HEENT: Reports: no symptoms Respiratory: Reports: no symptoms Breasts: Reports: no symptoms Cardiovascular: Reports: no symptoms Gastrointestinal/Abdominal: Reports: no symptoms Genitourinary: Reports: no symptoms Neurologic: Reports: no symptoms Psychiatric: Reports: no symptoms Skin: Reports: no symptoms Allergies: Coded Allergies: No Known Allergies (Unverified , 02/02/17) Objective Vital Signs Last 24 Hour Vital Signs Date Time Temp Pulse Resp B/P (MAP) Pulse Ox O2 Delivery O2 Flow Rate FiO2 02/06/17 09:50 75 103/60 02/06/17 08:00 98.1 75 18 103/60 95 Room Air 02/06/17 04:00 97.7 77 20 110/59 96 Nasal Cannula 3.0 02/06/17 00:00 97.3 74 116/69 97 Nasal Cannula 3.0 02/05/17 19:54 97.0 75 20 102/58 96 Nasal Cannula 3.0 02/05/17 18:29 97.7 Height (Feet): 6 Height (Inches): 2.00 Weight (Pounds): 279 General Appearance: WD/WN, no acute distress HEENT: normocephalic, atraumatic, anicteric Respiratory/Chest: chest wall non-tender, lungs clear, normal breath sounds, no respiratory distress, no accessory muscle use Cardiovascular: normal peripheral pulses, normal rate, regular rhythm Abdomen: normal bowel sounds, soft, non tender, no organomegaly, non distended Extremities: no cyanosis, no clubbing Skin: no rash, no lesions Current Medications Medications (Trade) Dose Ordered Sig/Ruma Route PRN Reason Start Time Stop Time Status Last Admin Dose Admin Acetaminophen (Tylenol) 650 mg Q4H PRN RECTAL Mild Pain (Pain Scale 1-3) 02/04/17 17:00 03/05/17 16:59 02/05/17 17:59 Amlodipine Besylate (Norvasc) 5 mg DAILY ORAL 02/05/17 09:00 03/05/17 08:59 02/06/17 09:50 Ascorbic Acid (Vitamin C) 500 mg DAILY ORAL 02/05/17 09:00 03/05/17 08:59 02/06/17 09:48 Aspirin (ASA) 81 mg DAILY ORAL 02/05/17 09:00 03/05/17 08:59 02/06/17 09:50 Dextrose/Sodium Chloride 1,000 ml @ 75 mls/hr [id number] IV 02/05/17 11:00 03/07/17 10:59 02/05/17 23:47 Piperacillin Sod/ Tazobactam Sod 3.375 gm/Dextrose 110 ml @ 220 mls/hr Q6HR IVPB 02/06/17 00:00 02/13/17 00:00 02/06/17 13:16 Promethazine HCl/ Codeine (Phenergan with Codeine) 5 ml Q4H PRN ORAL For Cough 02/04/17 17:00 03/05/17 16:59 02/05/17 09:42 Tamsulosin HCl (Flomax) 0.4 mg DAILY ORAL 02/05/17 09:00 03/05/17 08:59 02/06/17 09:48 Vancomycin HCl (Vanco rx to dose) 1 ea DAILYPRN PRN MISC Per rx protocol 02/05/17 09:00 03/06/17 08:59 Vancomycin HCl/ Dextrose 250 ml @ 125 mls/hr Q12HR@0800,2000 IVPB 02/05/17 20:00 02/10/17 02:59 02/06/17 09:46 Zinc Sulfate (Zinc Sulfate) 220 mg DAILY ORAL 02/05/17 09:00 03/05/17 08:59 02/06/17 09:48 Perez Anderson M.D. Feb 06, 2017 17:12
--- NOTE | 2017-02-06 17:34 | General Progress Note ---
Assessment/Plan Assessment/Plan ASSESSMENT AND PLAN: 1. Thrombocytopenia, likely secondary to underlying infection and sepsis. Continue to closely monitor. --> hiv and hep panel negative --> improving ---> if the plt count less than 10k, transfuse immediately. If less than 20k and febrile, transfuse. If less than 50k and bleeding, transfuse. 2. 2.5 cm cystic mass R kidney --> nephrology following, recommend re-CT in 2-3 months 3. Macrocytosis, likely related to medication versus other causes. Evaluate further with B12 and folate levels. 4. Leukocytosis, likely secondary to reactive process infection ---> on iv abx. --> resolved 5. Coronary artery disease. Continue to closely monitor. 6. Chronic obstructive pulmonary disease, presented from [facility] facility. Subjective Constitutional: Reports: no symptoms HEENT: Reports: no symptoms Cardiovascular: Reports: no symptoms Respiratory: Reports: no symptoms Gastrointestinal/Abdominal: Reports: no symptoms Genitourinary: Reports: no symptoms Neurologic/Psychiatric: Reports: no symptoms Endocrine: Reports: no symptoms Hematologic/Lymphatic: Reports: anemia Allergies: Coded Allergies: No Known Allergies (Unverified , 02/02/17) Subjective no signs of pain, afebrile, not bleeding Objective Last 24 Hour Vital Signs Date Time Temp Pulse Resp B/P (MAP) Pulse Ox O2 Delivery O2 Flow Rate FiO2 02/06/17 09:50 75 103/60 02/06/17 08:00 98.1 75 18 103/60 95 Room Air 02/06/17 04:00 97.7 77 20 110/59 96 Nasal Cannula 3.0 02/06/17 00:00 97.3 74 116/69 97 Nasal Cannula 3.0 02/05/17 19:54 97.0 75 20 102/58 96 Nasal Cannula 3.0 02/05/17 18:29 97.7 Intake and Output 02/06/17 02/07/17 19:00 07:00 Intake Total 520 ml Balance 520 ml Intake Oral 520 ml # Voids 1 Height (Feet): 6 Height (Inches): 2.00 Weight (Pounds): 279 General Appearance: no apparent distress EENT: PERRL/EOMI Neck: normal alignment Cardiovascular: normal peripheral pulses Respiratory/Chest: chest wall non-tender Neurologic: normal mood/affect Skin: normal pigmentation Tr Bhardwaj Feb 06, 2017 17:34
--- NOTE | 2017-02-06 17:39 | General Progress Note ---
Assessment/Plan Problem List: (1) Pneumonia ICD Codes: J18.9 - Pneumonia, unspecified organism SNOMED: 816061076 (2) Psychosis ICD Codes: F29 - Unspecified psychosis not due to a substance or known physiological condition SNOMED: 25414107 (3) Sepsis ICD Codes: A41.9 - Sepsis, unspecified organism SNOMED: 61772118 (4) Renal mass of unknown nature ICD Codes: N28.89 - Other specified disorders of kidney and ureter SNOMED: 642106808 Status: progressing Assessment/Plan renal mass pna and sepsis improved dc to snf leukocytosis improed r/o renal mass vs abscess reviewed chart and labs Subjective ROS Limited/Unobtainable: Yes Constitutional: Reports: no symptoms Allergies: Coded Allergies: No Known Allergies (Unverified , 02/02/17) Objective Last 24 Hour Vital Signs Date Time Temp Pulse Resp B/P (MAP) Pulse Ox O2 Delivery O2 Flow Rate FiO2 02/06/17 17:00 98.4 73 19 108/53 96 Room Air 02/06/17 09:50 75 103/60 02/06/17 08:00 98.1 75 18 103/60 95 Room Air 02/06/17 04:00 97.7 77 20 110/59 96 Nasal Cannula 3.0 02/06/17 00:00 97.3 74 116/69 97 Nasal Cannula 3.0 02/05/17 19:54 97.0 75 20 102/58 96 Nasal Cannula 3.0 02/05/17 18:29 97.7 Intake and Output 02/06/17 02/07/17 19:00 07:00 Intake Total 520 ml Balance 520 ml Intake Oral 520 ml # Voids 1 Height (Feet): 6 Height (Inches): 2.00 Weight (Pounds): 279 Cardiovascular: normal rate Respiratory/Chest: lungs clear Abdomen: soft Connor Oliva MD Feb 06, 2017 17:39
--- NOTE | 2017-02-06 18:08 | Pulmonology Progress Note ---
Assessment/Plan Problems: (1) Pneumonia (2) Sepsis (3) COPD (chronic obstructive pulmonary disease) (4) CAD (coronary artery disease) (5) Psychosis Assessment/Plan adjust abx hematology consult appreciated. dvt prophylaxis med/surg psych consult. Subjective ROS Limited/Unobtainable: No Constitutional: Reports: no symptoms HEENT: Repors: no symptoms Respiratory: Reports: no symptoms Allergies: Coded Allergies: No Known Allergies (Unverified , 02/02/17) Objective Last 24 Hour Vital Signs Date Time Temp Pulse Resp B/P (MAP) Pulse Ox O2 Delivery O2 Flow Rate FiO2 02/06/17 17:00 98.4 73 19 108/53 96 Room Air 02/06/17 09:50 75 103/60 02/06/17 08:00 98.1 75 18 103/60 95 Room Air 02/06/17 04:00 97.7 77 20 110/59 96 Nasal Cannula 3.0 02/06/17 00:00 97.3 74 116/69 97 Nasal Cannula 3.0 02/05/17 19:54 97.0 75 20 102/58 96 Nasal Cannula 3.0 02/05/17 18:29 97.7 Intake and Output 02/06/17 02/07/17 19:00 07:00 Intake Total 520 ml Balance 520 ml Intake Oral 520 ml # Voids 1 General Appearance: WD/WN HEENT: normocephalic, atraumatic Respiratory/Chest: chest wall non-tender, lungs clear Cardiovascular: normal peripheral pulses, normal rate, no JVD Abdomen: normal bowel sounds, soft, non tender Genitourinary: normal external genitalia Extremities: no cyanosis Skin: no rash 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, no motor/sensory deficits Current Medications Medications (Trade) Dose Ordered Sig/Ruma Route PRN Reason Start Time Stop Time Status Last Admin Dose Admin Acetaminophen (Tylenol) 650 mg Q4H PRN RECTAL Mild Pain (Pain Scale 1-3) 02/04/17 17:00 03/05/17 16:59 02/05/17 17:59 Amlodipine Besylate (Norvasc) 5 mg DAILY ORAL 02/05/17 09:00 03/05/17 08:59 02/06/17 09:50 Ascorbic Acid (Vitamin C) 500 mg DAILY ORAL 02/05/17 09:00 03/05/17 08:59 02/06/17 09:48 Aspirin (ASA) 81 mg DAILY ORAL 02/05/17 09:00 03/05/17 08:59 02/06/17 09:50 Dextrose/Sodium Chloride 1,000 ml @ 75 mls/hr [id number] IV 02/05/17 11:00 03/07/17 10:59 02/05/17 23:47 Piperacillin Sod/ Tazobactam Sod 3.375 gm/Dextrose 110 ml @ 220 mls/hr Q6HR IVPB 02/06/17 00:00 02/13/17 00:00 02/06/17 17:41 Promethazine HCl/ Codeine (Phenergan with Codeine) 5 ml Q4H PRN ORAL For Cough 02/04/17 17:00 03/05/17 16:59 02/05/17 09:42 Tamsulosin HCl (Flomax) 0.4 mg DAILY ORAL 02/05/17 09:00 03/05/17 08:59 02/06/17 09:48 Vancomycin HCl (Vanco rx to dose) 1 ea DAILYPRN PRN MISC Per rx protocol 02/05/17 09:00 03/06/17 08:59 Vancomycin HCl/ Dextrose 250 ml @ 125 mls/hr Q12HR@0800,2000 IVPB 02/05/17 20:00 02/10/17 02:59 02/06/17 09:46 Zinc Sulfate (Zinc Sulfate) 220 mg DAILY ORAL 02/05/17 09:00 03/05/17 08:59 02/06/17 09:48 CELINA COLLIER Feb 06, 2017 18:08
[2017-02-06] MEDS: Promethazine/Codeine 5ml UD ORAL PRN (20:00)
[2017-02-07] VITALS: BP 110/65
[2017-02-07] MEDS: D5NS 1,000 ML IV SCH (03:00)
[2017-02-07 04:00] VITALS: BP 112/75
[2017-02-07] MEDS: Zoysn 3.37gm in D5W 110ml IVPB SCH ×2 (05:12→13:56)
[2017-02-07 06:49] LABS: BASOPHILS % (AUTO) 1.1 % (0.0-2.0); EOSINOPHILS % (AUTO) 1.1 % (0.0-3.0); LYMPHOCYTES % (AUTO) 28.9 % (20.0-45.0); MEAN CORPUSCULAR HGB CONC 33.8 G/DL (32.0-36.0); MEAN CORPUSCULAR VOLUME 98 FL (80-99); MEAN PLATELET VOLUME 5.9 FL (6.5-10.1); MONOCYTES % (AUTO) 12.9 % (1.0-10.0); NEUTROPHILS % (AUTO) 56.2 % (45.0-75.0); PLATELET COUNT 185 K/UL (150-450); RED BLOOD COUNT 3.69 M/UL (4.70-6.10); RED CELL DISTRIBUTION WIDTH 12.7 % (11.6-14.8)
[2017-02-07 07:25] LABS: ALANINE AMINOTRANSFERASE 19 U/L (3-41); ALBUMIN/GLOBULIN RATIO 0.6 (1.0-2.7); ANION GAP 9 (5-15); ASPARTATE AMINO TRANSFERASE 19 U/L (5-40); CALCIUM 8.6 mg/dL (8.6-10.2); CARBON DIOXIDE 29 mEQ/L (20-30); CHLORIDE 102 mEQ/L (98-107); CREATININE 1.1 mg/dL (0.7-1.2); GLOMERULAR FILTRATION RATE > 60 mL/min (>60); HEMOLYSIS 5; MAGNESIUM 1.7 mg/dL (1.7-2.5); PHOSPHORUS 3.6 mg/dL (2.5-4.8); SODIUM 140 mEQ/L (135-145); TOTAL PROTEIN 6.4 g/dL (6.6-8.7)
[2017-02-07] MEDS: Vancomycin 1.5gm/D5W 250ml 250 ML IVPB SCH (08:00)
--- NOTE | 2017-02-07 08:52 | General Progress Note ---
Assessment/Plan Status: stable Assessment/Plan status: Dehydration resolved- Renal mass in WILLIE, CT confirms Pneumonia COPD CAD Sepsis Plan: CT Urogram done- + Renal mass DC when OK with ID, fu as OP , re CT in 2 -3 months Per orders Subjective ROS Limited/Unobtainable: No Allergies: Coded Allergies: No Known Allergies (Unverified , 02/02/17) Objective Last 24 Hour Vital Signs Date Time Temp Pulse Resp B/P (MAP) Pulse Ox O2 Delivery O2 Flow Rate FiO2 02/07/17 04:00 98.2 75 20 112/75 97 Nasal Cannula 2.0 02/07/17 00:00 98.6 79 20 110/65 96 Nasal Cannula 2.0 02/06/17 17:00 98.4 73 19 108/53 96 Room Air 02/06/17 09:50 75 103/60 Laboratory Tests 02/07/17 05:10: White Blood Count 10.0, Red Blood Count 3.69L, Hemoglobin 12.2L, Hematocrit 36.0L, Mean Corpuscular Volume 98, Mean Corpuscular Hemoglobin 33.0H, Mean Corpuscular Hemoglobin Concent 33.8, Red Cell Distribution Width 12.7, Platelet Count 185, Mean Platelet Volume 5.9L, Neutrophils (%) (Auto) 56.2, Lymphocytes ( %) (Auto) 28.9, Monocytes (%) (Auto) 12.9H, Eosinophils (%) (Auto) 1.1, Basophils (%) (Auto) 1.1, Erythrocyte Sedimentation Rate [Pending], Sodium Level 140, Potassium Level 4.0, Chloride Level 102, Carbon Dioxide Level 29, Anion Gap 9, Blood Urea Nitrogen 20, Creatinine 1.1, Estimat Glomerular Filtration Rate > 60, Glucose Level 98, Calcium Level 8.6, Phosphorus Level 3.6 , Magnesium Level 1.7, Total Bilirubin 0.6, Aspartate Amino Transf (AST/SGOT) 19 , Alanine Aminotransferase (ALT/SGPT) 19, Alkaline Phosphatase 54, C-Reactive Protein, Quantitative 6.0H, Total Protein 6.4L, Albumin 2.6L, Globulin 3.8, Albumin/Globulin Ratio 0.6L Height (Feet): 6 Height (Inches): 2.00 Weight (Pounds): 279 General Appearance: no apparent distress Objective no change in PE KWADWO VILLASEÑOR Feb 07, 2017 08:52
[2017-02-07 08:56] VITALS: BP 110/62
[2017-02-07] MEDS: Aspirin Baby 81mg ORAL SCH (09:05)
[2017-02-07] MEDS: Tamsulosin 0.4mg cap ORAL SCH (09:06)
[2017-02-07] MEDS: Ascorbic Acid 500mg tab ORAL SCH (09:06)
[2017-02-07] MEDS: Zinc Sulfate 220mg cap ORAL SCH (09:06)
[2017-02-07] MEDS ORDERED: D5NS 1000ml IV ONE (10:44)
[2017-02-07 11:03] LABS: ERYTHROCYTE SEDIMENTATION RATE 84 MM/HR (0-20)
[2017-02-07 11:52] VITALS: BP 112/60
[2017-02-07] MEDS ORDERED: VANCOMYCIN1 GM/2502 IVPB ×2 (13:19→13:21)
[2017-02-07] MEDS ORDERED: ZOSYN3.375 GM IV (13:20)
--- NOTE | 2017-02-07 15:45 | Infectious Diseases Prog Note ---
Assessment/Plan Problems: (1) HCAP (healthcare-associated pneumonia) Assessment & Plan: on vancomycin and zosyn empirically, sputum culture showed normal wanda, will treat for 10 days total (2) Sepsis Assessment & Plan: suspect renal abscess , blood culture is negative . continue wide spectrum antibiotics for 10 days and repeat images for follow up (3) COPD (chronic obstructive pulmonary disease) Assessment & Plan: continue inhalers, and oxygen (4) CAD (coronary artery disease) Assessment & Plan: continue cardiac meds , monitor in tele (5) Renal mass of unknown nature Assessment & Plan: unclear whether abscess VS tumor, had CT of the abdomen , recommend urology consult, and repeated image in 2 weeks after being on antibiotics to confirm diagnosis Subjective ROS Limited/Unobtainable: Yes Allergies: Coded Allergies: No Known Allergies (Unverified , 02/02/17) Objective Vital Signs Last 24 Hour Vital Signs Date Time Temp Pulse Resp B/P (MAP) Pulse Ox O2 Delivery O2 Flow Rate FiO2 02/07/17 11:52 98.6 78 20 112/60 94 Nasal Cannula 94.0 02/07/17 09:08 97 Nasal Cannula 2.0 02/07/17 09:06 75 110/62 02/07/17 08:56 98.2 75 20 110/62 97 Room Air 02/07/17 04:00 98.2 75 20 112/75 97 Nasal Cannula 2.0 02/07/17 00:00 98.6 79 20 110/65 96 Nasal Cannula 2.0 02/06/17 17:00 98.4 73 19 108/53 96 Room Air Height (Feet): 6 Height (Inches): 2.00 Weight (Pounds): 279 General Appearance: WD/WN, no acute distress HEENT: normocephalic, atraumatic, anicteric, mucous membranes moist Respiratory/Chest: chest wall non-tender, lungs clear, normal breath sounds, no respiratory distress, no accessory muscle use Cardiovascular: normal peripheral pulses, normal rate, regular rhythm, no gallop/murmur, no JVD Abdomen: normal bowel sounds, soft, non tender, no organomegaly, non distended , no mass, no scars Extremities: no cyanosis, no clubbing Skin: no rash, no lesions, no ulcers Laboratory Tests Test 02/07/17 05:10 White Blood Count 10.0 K/UL (4.8-10.8) Red Blood Count 3.69 M/UL (4.70-6.10) L Hemoglobin 12.2 G/DL (14.2-18.0) L Hematocrit 36.0 % (42.0-52.0) L Mean Corpuscular Volume 98 FL (80-99) Mean Corpuscular Hemoglobin 33.0 PG (27.0-31.0) H Mean Corpuscular Hemoglobin Concent 33.8 G/DL (32.0-36.0) Red Cell Distribution Width 12.7 % (11.6-14.8) Platelet Count 185 K/UL (150-450) Mean Platelet Volume 5.9 FL (6.5-10.1) L Neutrophils (%) (Auto) 56.2 % (45.0-75.0) Lymphocytes (%) (Auto) 28.9 % (20.0-45.0) Monocytes (%) (Auto) 12.9 % (1.0-10.0) H Eosinophils (%) (Auto) 1.1 % (0.0-3.0) Basophils (%) (Auto) 1.1 % (0.0-2.0) Erythrocyte Sedimentation Rate 84 MM/HR (0-20) H Sodium Level 140 mEQ/L (135-145) Potassium Level 4.0 mEQ/L (3.4-4.9) Chloride Level 102 mEQ/L (98-107) Carbon Dioxide Level 29 mEQ/L (20-30) Anion Gap 9 (5-15) Blood Urea Nitrogen 20 mg/dL (7-23) Creatinine 1.1 mg/dL (0.7-1.2) Estimat Glomerular Filtration Rate > 60 mL/min (>60) Glucose Level 98 mg/dL (74-106) Calcium Level 8.6 mg/dL (8.6-10.2) Phosphorus Level 3.6 mg/dL (2.5-4.8) Magnesium Level 1.7 mg/dL (1.7-2.5) Total Bilirubin 0.6 mg/dL (0.0-1.2) Aspartate Amino Transf (AST/SGOT) 19 U/L (5-40) Alanine Aminotransferase (ALT/SGPT) 19 U/L (3-41) Alkaline Phosphatase 54 U/L (40-129) C-Reactive Protein, Quantitative 6.0 mg/dL (< 0.5) H Total Protein 6.4 g/dL (6.6-8.7) L Albumin 2.6 g/dL (3.5-5.2) L Globulin 3.8 g/dL Albumin/Globulin Ratio 0.6 (1.0-2.7) L Current Medications Medications (Trade) Dose Ordered Sig/Ruma Route PRN Reason Start Time Stop Time Status Last Admin Dose Admin Acetaminophen (Tylenol) 650 mg Q4H PRN RECTAL Mild Pain (Pain Scale 1-3) 02/04/17 17:00 03/05/17 16:59 02/05/17 17:59 Amlodipine Besylate (Norvasc) 5 mg DAILY ORAL 02/05/17 09:00 03/05/17 08:59 02/07/17 09:06 Ascorbic Acid (Vitamin C) 500 mg DAILY ORAL 02/05/17 09:00 03/05/17 08:59 02/07/17 09:06 Aspirin (ASA) 81 mg DAILY ORAL 02/05/17 09:00 03/05/17 08:59 02/07/17 09:05 Dextrose/Sodium Chloride 1,000 ml @ 75 mls/hr [id number] IV 02/05/17 11:00 03/07/17 10:59 02/07/17 03:00 Piperacillin Sod/ Tazobactam Sod 3.375 gm/Dextrose 110 ml @ 220 mls/hr Q6HR IVPB 02/06/17 00:00 02/13/17 00:00 02/07/17 13:56 Promethazine HCl/ Codeine (Phenergan with Codeine) 5 ml Q4H PRN ORAL For Cough 02/04/17 17:00 03/05/17 16:59 02/06/17 20:00 Tamsulosin HCl (Flomax) 0.4 mg DAILY ORAL 02/05/17 09:00 03/05/17 08:59 02/07/17 09:06 Vancomycin HCl (Vanco rx to dose) 1 ea DAILYPRN PRN MISC Per rx protocol 02/05/17 09:00 03/06/17 08:59 Vancomycin HCl/ Dextrose 250 ml @ 125 mls/hr Q12HR@0800,2000 IVPB 02/05/17 20:00 02/10/17 02:59 02/07/17 08:00 Zinc Sulfate (Zinc Sulfate) 220 mg DAILY ORAL 02/05/17 09:00 03/05/17 08:59 02/07/17 09:06 Perez Anderson M.D. Feb 07, 2017 15:45
[2017-02-07 15:56] VITALS: BP 122/70
--- NOTE | 2017-02-07 16:44 | General Progress Note ---
Assessment/Plan Problem List: (1) Pneumonia ICD Codes: J18.9 - Pneumonia, unspecified organism SNOMED: 092598743 (2) Psychosis ICD Codes: F29 - Unspecified psychosis not due to a substance or known physiological condition SNOMED: 70639829 (3) Sepsis ICD Codes: A41.9 - Sepsis, unspecified organism SNOMED: 10744656 (4) Renal mass of unknown nature ICD Codes: N28.89 - Other specified disorders of kidney and ureter SNOMED: 224720363 Status: progressing Assessment/Plan renal mass w/u continue as outpatient afebrile pna and sepsis improved dc to snf today Subjective ROS Limited/Unobtainable: Yes Allergies: Coded Allergies: No Known Allergies (Unverified , 02/02/17) Objective Last 24 Hour Vital Signs Date Time Temp Pulse Resp B/P (MAP) Pulse Ox O2 Delivery O2 Flow Rate FiO2 02/07/17 15:56 98.2 75 20 122/70 95 Nasal Cannula 2.0 02/07/17 11:52 98.6 78 20 112/60 94 Nasal Cannula 94.0 02/07/17 09:08 97 Nasal Cannula 2.0 02/07/17 09:06 75 110/62 02/07/17 08:56 98.2 75 20 110/62 97 Room Air 02/07/17 04:00 98.2 75 20 112/75 97 Nasal Cannula 2.0 02/07/17 00:00 98.6 79 20 110/65 96 Nasal Cannula 2.0 02/06/17 17:00 98.4 73 19 108/53 96 Room Air Intake and Output 02/07/17 02/08/17 19:00 07:00 Intake Total 720 ml Balance 720 ml Intake Oral 720 ml # Voids 4 Laboratory Tests 02/07/17 05:10: White Blood Count 10.0, Red Blood Count 3.69L, Hemoglobin 12.2L, Hematocrit 36.0L, Mean Corpuscular Volume 98, Mean Corpuscular Hemoglobin 33.0H, Mean Corpuscular Hemoglobin Concent 33.8, Red Cell Distribution Width 12.7, Platelet Count 185, Mean Platelet Volume 5.9L, Neutrophils (%) (Auto) 56.2, Lymphocytes ( %) (Auto) 28.9, Monocytes (%) (Auto) 12.9H, Eosinophils (%) (Auto) 1.1, Basophils (%) (Auto) 1.1, Erythrocyte Sedimentation Rate 84H, Sodium Level 140, Potassium Level 4.0, Chloride Level 102, Carbon Dioxide Level 29, Anion Gap 9, Blood Urea Nitrogen 20, Creatinine 1.1, Estimat Glomerular Filtration Rate > 60 , Glucose Level 98, Calcium Level 8.6, Phosphorus Level 3.6, Magnesium Level 1.7 , Total Bilirubin 0.6, Aspartate Amino Transf (AST/SGOT) 19, Alanine Aminotransferase (ALT/SGPT) 19, Alkaline Phosphatase 54, C-Reactive Protein, Quantitative 6.0H, Total Protein 6.4L, Albumin 2.6L, Globulin 3.8, Albumin/ Globulin Ratio 0.6L Height (Feet): 6 Height (Inches): 2.00 Weight (Pounds): 279 Cardiovascular: normal rate Respiratory/Chest: lungs clear Abdomen: soft Connor Oliva MD Feb 07, 2017 16:44
--- NOTE | 2017-02-07 19:28 | Pulmonology Progress Note ---
Assessment/Plan Problems: (1) Pneumonia (2) Sepsis (3) COPD (chronic obstructive pulmonary disease) (4) CAD (coronary artery disease) (5) Psychosis Assessment/Plan adjust abx hematology consult appreciated. dvt prophylaxis med/surg psych consult. dc planning in progress Subjective ROS Limited/Unobtainable: No Constitutional: Reports: no symptoms HEENT: Repors: no symptoms Respiratory: Reports: no symptoms Allergies: Coded Allergies: No Known Allergies (Unverified , 02/02/17) Objective Last 24 Hour Vital Signs Date Time Temp Pulse Resp B/P (MAP) Pulse Ox O2 Delivery O2 Flow Rate FiO2 02/07/17 15:56 98.2 75 20 122/70 95 Nasal Cannula 2.0 02/07/17 11:52 98.6 78 20 112/60 94 Nasal Cannula 94.0 02/07/17 09:08 97 Nasal Cannula 2.0 02/07/17 09:06 75 110/62 02/07/17 08:56 98.2 75 20 110/62 97 Room Air 02/07/17 04:00 98.2 75 20 112/75 97 Nasal Cannula 2.0 02/07/17 00:00 98.6 79 20 110/65 96 Nasal Cannula 2.0 Intake and Output 02/07/17 02/08/17 19:00 07:00 Intake Total 720 ml Balance 720 ml Intake Oral 720 ml # Voids 4 General Appearance: WD/WN, no acute distress HEENT: normocephalic Respiratory/Chest: chest wall non-tender, lungs clear Cardiovascular: normal peripheral pulses, normal rate Abdomen: normal bowel sounds, soft, non tender Genitourinary: normal external genitalia Extremities: no clubbing Skin: no rash Neurologic/Psychiatric: parquetry layer II-XII grossly normal, no motor/sensory deficits Laboratory Tests 02/07/17 05:10: White Blood Count 10.0, Red Blood Count 3.69L, Hemoglobin 12.2L, Hematocrit 36.0L, Mean Corpuscular Volume 98, Mean Corpuscular Hemoglobin 33.0H, Mean Corpuscular Hemoglobin Concent 33.8, Red Cell Distribution Width 12.7, Platelet Count 185, Mean Platelet Volume 5.9L, Neutrophils (%) (Auto) 56.2, Lymphocytes ( %) (Auto) 28.9, Monocytes (%) (Auto) 12.9H, Eosinophils (%) (Auto) 1.1, Basophils (%) (Auto) 1.1, Erythrocyte Sedimentation Rate 84H, Sodium Level 140, Potassium Level 4.0, Chloride Level 102, Carbon Dioxide Level 29, Anion Gap 9, Blood Urea Nitrogen 20, Creatinine 1.1, Estimat Glomerular Filtration Rate > 60 , Glucose Level 98, Calcium Level 8.6, Phosphorus Level 3.6, Magnesium Level 1.7 , Total Bilirubin 0.6, Aspartate Amino Transf (AST/SGOT) 19, Alanine Aminotransferase (ALT/SGPT) 19, Alkaline Phosphatase 54, C-Reactive Protein, Quantitative 6.0H, Total Protein 6.4L, Albumin 2.6L, Globulin 3.8, Albumin/ Globulin Ratio 0.6L CELINA COLLIER Feb 07, 2017 19:28
--- NOTE | 2017-02-07 20:25 | General Progress Note ---
Assessment/Plan Assessment/Plan ASSESSMENT AND PLAN: 1. Thrombocytopenia, likely secondary to underlying infection and sepsis. Continue to closely monitor. --> hiv and hep panel negative --> resolved 2. 2.5 cm cystic mass R kidney --> nephrology following, recommend re-CT in 2-3 months 3. Macrocytosis, likely related to medication versus other causes. Evaluate further with B12 and folate levels. 4. Leukocytosis, likely secondary to reactive process infection ---> on iv abx. --> resolved 5. Coronary artery disease. Continue to closely monitor. 6. Chronic obstructive pulmonary disease, presented from custodial facility. Subjective Constitutional: Reports: no symptoms HEENT: Reports: no symptoms Cardiovascular: Reports: no symptoms Respiratory: Reports: no symptoms Gastrointestinal/Abdominal: Reports: no symptoms Genitourinary: Reports: no symptoms Neurologic/Psychiatric: Reports: no symptoms Endocrine: Reports: no symptoms Hematologic/Lymphatic: Reports: no symptoms Allergies: Coded Allergies: No Known Allergies (Unverified , 02/02/17) Subjective no signs of pain, afebrile, not bleeding, HH stable Objective Last 24 Hour Vital Signs Date Time Temp Pulse Resp B/P (MAP) Pulse Ox O2 Delivery O2 Flow Rate FiO2 02/07/17 15:56 98.2 75 20 122/70 95 Nasal Cannula 2.0 02/07/17 11:52 98.6 78 20 112/60 94 Nasal Cannula 94.0 02/07/17 09:08 97 Nasal Cannula 2.0 02/07/17 09:06 75 110/62 02/07/17 08:56 98.2 75 20 110/62 97 Room Air 02/07/17 04:00 98.2 75 20 112/75 97 Nasal Cannula 2.0 02/07/17 00:00 98.6 79 20 110/65 96 Nasal Cannula 2.0 Intake and Output 02/07/17 02/08/17 19:00 07:00 Intake Total 720 ml Balance 720 ml Intake Oral 720 ml # Voids 4 Laboratory Tests 02/07/17 05:10: White Blood Count 10.0, Red Blood Count 3.69L, Hemoglobin 12.2L, Hematocrit 36.0L, Mean Corpuscular Volume 98, Mean Corpuscular Hemoglobin 33.0H, Mean Corpuscular Hemoglobin Concent 33.8, Red Cell Distribution Width 12.7, Platelet Count 185, Mean Platelet Volume 5.9L, Neutrophils (%) (Auto) 56.2, Lymphocytes ( %) (Auto) 28.9, Monocytes (%) (Auto) 12.9H, Eosinophils (%) (Auto) 1.1, Basophils (%) (Auto) 1.1, Erythrocyte Sedimentation Rate 84H, Sodium Level 140, Potassium Level 4.0, Chloride Level 102, Carbon Dioxide Level 29, Anion Gap 9, Blood Urea Nitrogen 20, Creatinine 1.1, Estimat Glomerular Filtration Rate > 60 , Glucose Level 98, Calcium Level 8.6, Phosphorus Level 3.6, Magnesium Level 1.7 , Total Bilirubin 0.6, Aspartate Amino Transf (AST/SGOT) 19, Alanine Aminotransferase (ALT/SGPT) 19, Alkaline Phosphatase 54, C-Reactive Protein, Quantitative 6.0H, Total Protein 6.4L, Albumin 2.6L, Globulin 3.8, Albumin/ Globulin Ratio 0.6L Height (Feet): 6 Height (Inches): 2.00 Weight (Pounds): 279 General Appearance: no apparent distress EENT: normal ENT inspection Neck: non-tender, normal alignment Cardiovascular: normal rate, regular rhythm Respiratory/Chest: chest wall non-tender, no accessory muscle use Skin: normal pigmentation, warm/dry Tr Bhardwaj Feb 07, 2017 20:25
--- NOTE | 2017-02-09 09:10 | Discharge Summary ---
Discharge Summary Hospital Course Date of Admission Feb 02, 2017 at 21:47 Date of Discharge Feb 07, 2017 at 16:44 Admitting Diagnosis sepsis HPI Amaury Lancaster is a 66 year old male who was admitted on Feb 02, 2017 at 21:47 for Sepsis Hospital Course dc summary #[id number] Discharge Medications Continued Medications: Amlodipine Besylate* (Amlodipine Besylate*) 5 Mg Tablet 5 MG ORAL DAILY, TAB Ascorbic Acid* (Vitamin C*) 500 Mg Tablet 500 MG ORAL DAILY, #30 TAB 0 Refills Aspirin* (Aspir 81*) 81 Mg Tablet.dr 81 MG ORAL DAILY, TAB Cranberry Extract (Cranberry) 500 Mg Tablet 450 MG PO, TAB Ferrous Sulfate* (Ferrous Sulfate*) 325 Mg Tablet 325 MG ORAL DAILY, #30 TAB 0 Refills Piperacillin/Tazobactam Sod (Zosyn 3.375 Gram Vial) 3.375 Gm Vial 3.375 GM IV EVERY 6 HOURS for until 02/16 for 9 Days, VIAL Tamsulosin HCl (Flomax) 0.4 Mg Cap.er.24h 0.4 MG ORAL DAILY, CAP Vancomycin Hcl/D5w (Vancomycin-D5w 1 G/250 Ml) 1 Gm/250 Ml Plast..bag 0 IVPB for pharm to dose., BAG Vancomycin Hcl/D5w (Vancomycin-D5w 1 G/250 Ml) 1 Gm/250 Ml Plast..bag 0 IVPB pharm to dose for pharm to dose until 02/16, BAG Zinc Sulfate (Zinc Sulfate*) 220 Mg Capsule 220 MG ORAL DAILY, CAP 0 Refills Discharge Condition Upon Discharge: stable Discharge Disposition Patient was discharged to SNF/Subacute Facility(03) Discharge Diagnoses: Discharge Instructions Discharge Instructions Special Instructions I have been assigned to complete a D/C Summary on this account. I was not involved in the patient management Arelis Rogers NP ([facility]) Feb 09, 2017 09:10
--- NOTE | 2017-02-10 05:30 | Discharge Summary 2 SIG ---
DATE OF ADMISSION: 02/02/2017 DATE OF DISCHARGE: 02/07/2017 Reason For Admission: 66-year-old male, resident of [facility] facility, with past medical history significant for COPD, hypertension, schizophrenia, and GERD, was noted in the snf to be feverish, tachycardic, and tachypneic. Paramedics were called. Paramedics noted low oxygen saturation. Upon arrival in the emergency room and on evaluation found that the patient had a low-grade fever of 99.7 degrees. The patient was tachycardic - 111 and tachypneic - 24. Pulse oximetry was initially stable on room air. WBC -20.3. Lactic acid-1.7. CK -755. EKG showed sinus tachycardia, but no acute ischemic changes. Chest x-ray revealed left lower lobe opacity suggestive of left base pneumonia. BUN -29 and creatinine -1.5. The patient was admitted for further management. ADMITTING DIAGNOSES: 1. Sepsis. 2. Pneumonia. 3. Dehydration. Hospital Course: The patient was admitted. The patient started on empiric antibiotics. Infectious Disease specialist followed. Supplemental oxygen and pulmonary toilet provided as needed. Sputum cultures were negative. Blood cultures were negative. Ultrasound of the abdomen revealed complex renal lesion mass versus abscess, but no gallstones, no dilated ducts. Subsequently, Urology consult was requested. Urologist recommended to proceed with the CT of the abdomen with IV contrast. Dehydration was corrected with IV fluids, and creatinine down to normal. Analog Ic Design Architect followed. Nephrotoxics were avoided. Renal parameters and electrolytes were closely monitored. Subsequently, CT of the abdomen and pelvis with contrast was performed as recommended by urologist and revealed 2.5 cm complex cystic mass within right kidney: cystic renal cell carcinoma versus infection. Infectious Disease specialist suspected abscess. Leukocytosis resolved with treatment. He recommended to continue treatment to complete the full course of antibiotics. Analog Ic Design Architect and Infectious Diseases specialist both recommended to repeat CT of the abdomen and pelvis in two months. DVT prophylaxis provided. Bottom Polisher closely followed. Supplemental oxygen and pulmonary toilet provided as needed. Pulmonary status was stable. senior living facility medications were continued. Blood pressure was stable with the current regimen ( i.e.Amlodipine). Lipid panel was within normal limits. Aspirin was continued. The patient also noted to have thrombocytopenia. Hematology consult requested. Per Hematology, thrombocytopenia was likely secondary to underlying infection and sepsis. Hepatitis panel and HIV were both negative. Initial thrombocytopenia resolved. The patient also noted to have macrocytosis, likely related to medication versus other causes as per thermospray operator. He recommended to evaluate further B12 and folate levels. The patient was stable for returning back to [facility] facility. CK down to normal. Creatinine down to normal. Leukocytosis resolved. Continue antibiotic as specified by Infectious Disease specialist and repeat CT of the abdomen and pelvis in two months. FINAL DIAGNOSES: 1. Sepsis. 2. Healthcare-associated pneumonia. 3. Chronic obstructive pulmonary disease. 4. Coronary artery disease. 5. Right renal mass. 6. Dehydration. 7. Thrombocytopenia. DISCHARGE MEDICATIONS: See medication reconciliation list. Discharge Instructions: The [facility] to [facility]. Follow up with medical doctor at the facility. Repeat CT of the abdomen and pelvis in two months. Connor Oliva M.D. I have been assigned to dictate discharge summary on this account and I was not involved in the patient's management. Arelis Rogers ([facility] N.P. DR: Shruti JOB#: [id number] CC: [facility]
== END 2017-02-07 16:44 | DRG 871 ==
LOC: EDBD 20:17 → EMR 21:40 → 2W 21:47 → EDBEDREQ 23:07 → 2W 02-03 01:32 → 2E 02-03 17:47 → 4W 02-04 16:22
DX: A41.9 Sepsis, unspecified organism (principal); J18.9 Pneumonia, unspecified organism; D69.59 Other secondary thrombocytopenia; J44.9 Chronic obstructive pulmonary disease, unspecified; F20.9 Schizophrenia, unspecified; E86.0 Dehydration; I25.10 Atherosclerotic heart disease of native coronary artery without angina pectoris; Y95 Nosocomial condition; I10 Essential (primary) hypertension; K21.9 Gastro-esophageal reflux disease without esophagitis; D75.89 Other specified diseases of blood and blood-forming organs; F09 Unspecified mental disorder due to known physiological condition; N28.89 Other specified disorders of kidney and ureter
CPT/HCPCS: 36415; 71010; 74178; 76700; 80053; 80061; 80202; 81001; 82550; 82553; 83036; 83605; 83735; 83880; 84100; 84443; 84484; 84550; 85007; 85025; 85651; 86140; 86703; 86705; 86709; 86803; 87040; 87070; 87081; 87205; 87340; 93005; 94664; 99285